=== PATIENT | male | born 1975 | race Asian ===

== ENCOUNTER 2020-07-05 07:44 | Outpatient (REF) | payer OTHER, SELFPAY | END 2020-07-05 07:45 | disposition home or self-care (01) | LOC: HO.LAB 07:44 | PROVIDERS: Visit Provider Internal Medicine | DX: Z20.822 Contact with and (suspected) exposure to COVID-19 (principal) | CPT/HCPCS: 36415; C9803; U0003; U0005 ==

== ENCOUNTER 2020-10-21 05:56 | Emergency (ER) | payer OTHER, SELFPAY ==
[2020-10-21 07:09] VITALS: BP 141/90; PULSE 77; RESP 17; TEMP 36.8; O2SAT 96; BMI 31.1
--- NOTE | 2020-10-21 07:25 | ED_ITS ---
HPI - Back Pain/Injury General Chief Complaint: Back Pain/Injury Stated Complaint: Back pain Time Seen by Provider: 10/21/20 07:15 Source: patient Mode of arrival: ambulatory Limitations: no limitations History of Present Illness HPI Narrative: Patient comes emergency room complaining of bilateral lower back pain for 6 days. Patient states 6 days ago he was at home, lifted bag of laundry, heard a pop. Since then, he has been having bilateral lower back pain. Patient states he has not taking any wlux-grn-bylepnh medications for pain. Patient states that over last few days, the pain has actually been getting better. Patient denies any urinary/fecal incontinence/retention. Patient is ambulatory. MD elicited complaint: back pain Related Data Previous Rx's Medication Instructions Recorded cyclobenzaprine 10 mg PO TID PRN #10 tab 10/21/20 ibuprofen 600 mg PO TID PRN #10 tab 10/21/20 lidocaine 3 patch TOPICAL DAILY #1 ea 10/21/20 Allergies Allergy/AdvReac Type Severity Reaction Status Date / Time No Known Allergies Allergy Unverified 02/14/20 16:08 [No Known Allergies*] Review of Systems Review of Systems: Constitutional : No Weight loss, No Fever, No Chills, No Night Sweats, No Fatigue, No Malaise ENT/Mouth : No Hearing loss, No Ear Pain, No Nasal Congestion, No Sinus Pain, No Hoarseness, No sore throat, No Rhinorrhea, No Swallowing Difficulty Eyes: No Eye Pain, No Swelling, No Redness, No Foreign Body, No Discharge, No Vision Changes Cardiovascular : No Chest Pain, No SOB, No Dyspnea on Exertion, No Orthopnea, No Edema, No Palpitations Respiratory : No Cough, No Sputum, No Wheezing, No Smoke Exposure, No Dyspnea Gastrointestinal : No Nausea, No Vomiting, No Diarrhea, No Constipation, No abdominal Pain, No Hematochezia, No Melena Genitourinary : no irregular bleeding, No Dysuria, No Urinary Frequency, No Hematuria, No Urinary Incontinence, No Urgency, No Flank Pain, No Urinary Flow Changes, No Hesitancy Musculoskeletal : No joint pain, bilateral lower back pain Skin : No Skin Lesions, No rash Neuro : No Weakness, No Numbness, No Paresthesias, No Loss of Consciousness, No Dizziness, No Headache Psych : No Anxiety/Panic, No Depression, No SI/HI/AH/VH, No Social Issues, Heme/Lymph: No Bruising, No Bleeding,No Lymphadenopathy Endocrine : No Polyuria, No Polydipsia, No Temperature Intolerance PENDING SALE TO [facility] Social History Social History Advance Directives: No Advance Directives Information Provided: No Physical Exam Vital Signs: Vital Signs: Last Vital Signs Temp 98.3 F 10/21/20 07:09 Pulse 77 10/21/20 07:09 Resp 17 10/21/20 07:09 BP 141/90 H 10/21/20 07:09 Pulse Ox 96 10/21/20 07:09 Body Mass Index 31.1 Appearance: Alert. Oriented X3. No acute distress. Eyes: Pupils equal, round and reactive to light. ENT: Pharynx normal. Neck: Normal inspection. Neck supple. No lymph nodes noted. No crepitus CVS: Normal heart rate and rhythm. Pulses normal. Normal S1 and S2 Respiratory: No respiratory distress. Breath sounds normal. No Wheezing. No rales Abdomen: Soft and nontender. No rigidity. No distention. Back: No thoracic or lumbar spine tenderness, pain to palpation over the paraspinal muscles bilaterally. No hip pain, hip stability, negative straight leg raise test bilaterally Skin: Skin warm and dry. Normal skin color. Normal skin turgor. Extremities: No lower extremity edema. No lower extremity edema. No La cerations. No Rash Neuro: Oriented X 3. No motor deficit. No sensory deficit. Moving all extermities. No slurred speech. Course Course Course Narrative: Patient's pain likely musculoskeletal. At this time, strain to paraspinal muscles most likely. Less likely to be sciatica/pinch nerve/herniated disc. Overall, with the treatment patient is improving Discharge Plan Discharge Clinical Impression: Strain of lumbar region Qualifiers: Encounter type: initial encounter Qualified Code(s): S39.012A - Strain of muscle, fascia and tendon of lower back, initial encounter Patient Disposition: Home, Self-Care Instructions: Low Back Strain (ED), Lower Back Exercises (ED) Additional Instructions: Please follow-up with your primary care physician tomorrow. If you have any worsening or new symptoms, please return to the emergency room or call 911 Prescriptions: New ibuprofen 600 mg tablet 600 mg PO TID PRN (Reason: pain) Qty: 10 RF: 0 cyclobenzaprine 10 mg tablet 10 mg PO TID PRN (Reason: muscle spasm) Qty: 10 RF: 0 lidocaine 5 % adhesive patch,medicated 3 patch topical DAILY Qty: 1 RF: 0 Stand Alone Forms: Work/School Release
[2020-10-21] MEDS: Ketorolac Tromethamine 60 MG/2 ML VIAL IM (07:37)
== END 2020-10-21 07:43 | disposition home or self-care (01) ==
PROVIDERS: Emergency Provider Emergency Medicine
DX: S39.012A Strain of muscle, fascia and tendon of lower back, initial encounter (principal); X50.0XXA Overexertion from strenuous movement or load, initial encounter; Y93.E2 Activity, laundry; Y92.018 Other place in single-family (private) house as the place of occurrence of the external cause; Y99.9 Unspecified external cause status
CPT/HCPCS: 96372; 99284; J1885

== ENCOUNTER 2021-03-14 05:24 | Emergency (ER) | payer OTHER, SELFPAY ==
[2021-03-14 05:36] VITALS: BP 115/86; PULSE 96; RESP 16; TEMP 36.4; O2SAT 95; BMI 33.4
[2021-03-14 05:48] LABS: COVID-19 Test Negative (Negative); IDNOW Serial# 9DD0AD1C
[2021-03-14 06:25] LABS: Appearance Urine CLEAR; Color Urine YELLOW; Glucose Urine UA NEG (NEG); Leukocyte Esterase Urine NEG (NEG); MANUAL DIFF FLAG NO; Nitrite Urine NEG (NEG); Specific Gravity - Urine >= 1.030 (1.005-1.025); UACC Culture Trigger NO; Urine Blood 2+ (NEG); Urine Ketones NEG (NEG); Urine Protein 1+ MG/DL (NEG-TRACE)
[2021-03-14 06:26] LABS: Basophils Percent Auto 0.4 % (0-2); Eosinophils Absolute Auto 0.1 X10*3/uL (0.0-0.4); Eosinophils Percent Auto 0.9 % (0-4); Hematocrit 51.3 % (42-52); Hemoglobin 16.4 g/dl (14.0-18.0); Imm Gran Abs Auto 0.04 X10*3/uL (0.00-0.03); Imm Gran Pct Auto 0.4 % (0.0-0.4); Lymphocytes Absolute Auto 1.5 X10*3/uL (1.2-4.9); Mean Corpuscular Hemoglobin 23.8 pg (27.0-33.0); Mean Corpuscular Volume 74.6 fL (80-98); Mean Platelet Volume 11.6 fL (9.4-12.4); Monocytes Absolute Auto 1.2 X10*3/uL (0.1-1.2); Monocytes Percent Auto 11.7 % (2-11); Neutrophils Absolute Auto 7.1 X10*3/uL (2.0-8.3); Neutrophils Percent Auto 71.6 % (45-73); Platelet Count 259 X10*3/uL (160-400); Red Blood Count 6.88 X10*6/uL (4.60-5.80); Red Cell Distribution Width 17.5 % (11.0-16.0); White Blood Count 9.9 X10*3/uL (4.8-10.8)
[2021-03-14] MEDS: 0.9 % Sodium Chloride 1,000 ML 999 ML IV (06:26)
[2021-03-14] MEDS: ondansetron HCL 4 MG/2 ML VIAL IVPUSH (06:26)
[2021-03-14 06:39] LABS: Granular Casts Urine 0-2 /LPF; Hyaline Casts Urine 0-2 /LPF; Mucus Urine 3+ /LPF; Sperm Urine NOTED; Squamous Epithelial Cell Urine TRACE /LPF; WBC Urine 0-2 /HPF (0-4)
[2021-03-14 06:51] LABS: Alanine Aminotransferase 47 U/L (0-40); Albumin Level 4.7 g/dL (3.5-5.0); Alkaline Phosphatase 115 U/L (39-117); Anion Gap 16 (12-20); Aspartate Amino Transferase 66 U/L (5-37); Bilirubin Total 0.7 mg/dL (0.0-1.0); Blood Urea Nitrogen 26 mg/dL (9-16); Calcium 9.8 mg/dL (8.4-10.2); Carbon Dioxide 18 mmol/L (22-29); Chloride 114 mmol/L (96-108); Estimated Glomerular Filt Rate 54; Glucose Random 86 mg/dL (60-115); Lipase 46 U/L (8-78); Potassium 4.9 mmol/L (3.3-5.1); Sodium 143 mmol/L (135-145); Total Protein 7.9 g/dL (6.5-8.0)
--- NOTE | 2021-03-14 08:21 | ED_ITS ---
HPI - Nausea/Vomiting/Diarrhea General Chief complaint: Nausea/Vomiting/Diarrhea Stated complaint: stomach pain, vomiting, diarrhea Time Seen by Provider: 03/14/21 05:56 Source: patient Mode of arrival: ambulatory History of Present Illness HPI Narrative: 45-year-old male without significant past medical history presents with 3 days nausea, vomiting, diarrhea and denies any recent travel, but states he may have gotten it from his niece. He is unsure if there is a possibility that it might of been contaminated food as well. Patient has chills but no fevers and denies any urinary symptoms. Patient reports that he has been on recent antibiotic use for dental caries. Related Data Previous Rx's Medication Instructions Recorded cyclobenzaprine 10 mg tablet 10 mg PO TID PRN #10 tab 10/21/20 ibuprofen 600 mg tablet 600 mg PO TID PRN #10 tab 10/21/20 lidocaine 5 % topical patch 3 patch TOPICAL DAILY #1 ea 10/21/20 Allergies Allergy/AdvReac Type Severity Reaction Status Date / Time No Known Allergies Allergy Verified 03/14/21 05:36 [No Known Allergies*] Review of Systems Review of Systems: Pertinent positives and negatives as stated in HPI 10 point review of systems is otherwise negative. PMFSH Past Medical History Source: nursing notes reviewed Social History Social History Alcohol intake: never Advance Directives: No Advance Directives Information Provided: Yes Physical Exam Vital Signs: Vital Signs: Last Vital Signs Temp 97.6 F 03/14/21 05:36 Pulse 96 03/14/21 05:36 Resp 16 03/14/21 05:36 BP 115/86 03/14/21 05:36 Pulse Ox 95 03/14/21 05:36 Body Mass Index 33.4 VITAL SIGNS: Reviewed. GENERAL: Well developed, well nourished, in no acute distress. HEAD: Normocephalic/atraumatic, EYES: PERRLA, EOMI LUNGS: Normal breath sounds. No adventitious sounds or accessory muscle use. SpO2<95> CARDIOVASCULAR: Regular rate and rhythm without noted murmurs ABDOMEN: Soft, non-tender, non-distended with bowel sounds. SKIN: Inspection of the skin reveals no rashes NEUROLOGIC: Alert and oriented x 4. Strength and sensation to light touch were grossly intact x 4. Course Course Course Narrative: This is a 45-year-old male with history and clinical presentation consistent with gastroenteritis, C diff as well as dehydration. Signed out to Dr Mancia. MDM - Nausea/Vomiting/Diarrhea Lab Data Result diagrams: 03/14/21 06:19 03/14/21 06:19 Labs: Lab Results 03/14/21 03/14/21 03/14/21 Range/Units 05:28 06:19 06:19 WBC 9.9 (4.8-10.8) X10*3/uL RBC 6.88 H (4.60-5.80) X10*6/uL Hgb 16.4 (14.0-18.0) g/dl Hct 51.3 (42-52) % MCV 74.6 L (80-98) fL MCH 23.8 L (27.0-33.0) pg MCHC 32.0 (31.0-36.0) g/dl RDW 17.5 H (11.0-16.0) % Plt Count 259 (160-400) X10*3/uL MPV 11.6 (9.4-12.4) fL Immature Gran % (Auto) 0.4 (0.0-0.4) % Neut % (Auto) 71.6 (45-73) % Lymph % (Auto) 15.0 L (20-40) % Pepin % (Auto) 11.7 H (2-11) % Eos % (Auto) 0.9 (0-4) % Baso % (Auto) 0.4 (0-2) % Lymph # (Auto) 1.5 (1.2-4.9) X10*3/uL [place] # (Auto) 1.2 (0.1-1.2) X10*3/uL Eos # (Auto) 0.1 (0.0-0.4) X10*3/uL Baso # (Auto) 0.0 (0.0-0.2) X10*3/uL Abs Immat Gran (auto) 0.04 H (0.00-0.03) X10*3/uL Absolute Neuts (auto) 7.1 (2.0-8.3) X10*3/uL Absolute Nucleated RBC 0.000 (0.0-0.012) X10*3/uL Nucleated RBC % (auto) 0.0 (0.0-0.2) /100WBC Sodium 143 (135-145) mmol/L Potassium 4.9 (3.3-5.1) mmol/L Chloride 114 H (96-108) mmol/L Carbon Dioxide 18 L (22-29) mmol/L Anion Gap 16 (12-20) BUN 26 H (9-16) mg/dL Creatinine 1.42 H (0.5-1.4) mg/dL Estim Creat Clear Calc 76.0 Estimated GFR 54 Random Glucose 86 (60-115) mg/dL Calcium 9.8 (8.4-10.2) mg/dL Total Bilirubin 0.7 (0.0-1.0) mg/dL AST 66 H (5-37) U/L ALT 47 H (0-40) U/L Alkaline Phosphatase 115 (39-117) U/L Total Protein 7.9 (6.5-8.0) g/dL Albumin 4.7 (3.5-5.0) g/dL Lipase 46 (8-78) U/L Urine Color Urine Appearance Urine pH (5.0-8.0) Ur Specific [place] (1.005-1.025) Urine Protein (NEG-TRACE) MG/DL Urine Glucose (UA) (NEG) MG/DL Urine Ketones (NEG) MG/DL Urine Blood (NEG) Urine Nitrite (NEG) Ur Leukocyte Esterase (NEG) Urine RBC (0) /HPF Urine WBC (0-4) /HPF Ur Squamous Epith Cells /LPF Urine Bacteria /LPF Hyaline Casts /LPF Granular Casts /LPF Urine Mucus /LPF Urine Sperm COVID-19 (MARIBELL) Negative (Negative) COVID-19 Clin Com See Note 03/14/21 Range/Units 06:19 WBC (4.8-10.8) X10*3/uL RBC (4.60-5.80) X10*6/uL Hgb (14.0-18.0) g/dl Hct (42-52) % MCV (80-98) fL MCH (27.0-33.0) pg MCHC (31.0-36.0) g/dl RDW (11.0-16.0) % Plt Count (160-400) X10*3/uL MPV (9.4-12.4) fL Immature Gran % (Auto) (0.0-0.4) % Neut % (Auto) (45-73) % Lymph % (Auto) (20-40) % [place] % (Auto) (2-11) % Eos % (Auto) (0-4) % Baso % (Auto) (0-2) % Lymph # (Auto) (1.2-4.9) X10*3/uL [place] # (Auto) (0.1-1.2) X10*3/uL Eos # (Auto) (0.0-0.4) X10*3/uL Baso # (Auto) (0.0-0.2) X10*3/uL Abs Immat Gran (auto) (0.00-0.03) X10*3/uL Absolute Neuts (auto) (2.0-8.3) X10*3/uL Absolute Nucleated RBC (0.0-0.012) X10*3/uL Nucleated RBC % (auto) (0.0-0.2) /100WBC Sodium (135-145) mmol/L Potassium (3.3-5.1) mmol/L Chloride (96-108) mmol/L Carbon Dioxide (22-29) mmol/L Anion Gap (12-20) BUN (9-16) mg/dL Creatinine (0.5-1.4) mg/dL Estim Creat Clear Calc Estimated GFR Random Glucose (60-115) mg/dL Calcium (8.4-10.2) mg/dL Total Bilirubin (0.0-1.0) mg/dL AST (5-37) U/L ALT (0-40) U/L Alkaline Phosphatase (39-117) U/L Total Protein (6.5-8.0) g/dL Albumin (3.5-5.0) g/dL Lipase (8-78) U/L Urine Color YELLOW Urine Appearance CLEAR Urine pH 6.0 (5.0-8.0) Ur Specific [place] >= 1.030 H (1.005-1.025) Urine Protein 1+ H (NEG-TRACE) MG/DL Urine Glucose (UA) NEG (NEG) MG/DL Urine Ketones NEG (NEG) MG/DL Urine Blood 2+ H (NEG) Urine Nitrite NEG (NEG) Ur Leukocyte Esterase NEG (NEG) Urine RBC 5-9 H (0) /HPF Urine WBC 0-2 (0-4) /HPF Ur Squamous Epith Cells TRACE /LPF Urine Bacteria NONE /LPF Hyaline Casts 0-2 /LPF Granular Casts 0-2 /LPF Urine Mucus 3+ /LPF Urine Sperm NOTED COVID-19 (MARIBELL) (Negative) COVID-19 Clin Com Discharge Plan Discharge Clinical Impression: Gastroenteritis, Dehydration Patient Disposition: Home, Self-Care Instructions: Dehydration (ED), Gastroenteritis (ED) Prescriptions: No Action ibuprofen 600 mg tablet 600 mg PO TID PRN (Reason: pain) Qty: 10 RF: 0 cyclobenzaprine 10 mg tablet 10 mg PO TID PRN (Reason: muscle spasm) Qty: 10 RF: 0 lidocaine 5 % adhesive patch,medicated 3 patch topical DAILY Qty: 1 RF: 0
[2021-03-14 08:38] LABS: Leukocytes Stool Qualitative FEW: < 2/OIF (NEGATIVE)
[2021-03-14] MEDS: 0.9 % Sodium Chloride 1,000 ML 999 ML IVCONT (09:14)
[2021-03-14 11:41] LABS: CDiff Gene PCR INVALID (Negative)
== END 2021-03-14 11:09 | disposition home or self-care (01) ==
PROVIDERS: Student in an Organized Health Care Education/Training Program; Emergency Provider Emergency Medicine
DX: E86.0 Dehydration (principal); K52.9 Noninfective gastroenteritis and colitis, unspecified; Z20.822 Contact with and (suspected) exposure to COVID-19
CPT/HCPCS: 36415; 80053; 81001; 83690; 85025; 87045; 87046; 87493; 87635; 89055; 96361; 96374; 99283; 99284; J2405

== ENCOUNTER 2021-07-24 12:53 | Emergency (ER) | payer OTHER, SELFPAY | END 2021-07-24 14:12 | disposition left against medical advice (07) | PROVIDERS: Emergency Provider Emergency Medicine | DX: R10.9 Unspecified abdominal pain (principal) ==

== ENCOUNTER 2022-10-24 03:25 | Emergency (ER) | payer OTHER, SELFPAY ==
--- NOTE | ~2022-10-24 | CT_ITS ---
EXAMINATION: CT CHEST WITH CONTRAST CLINICAL INFORMATION: Extensive florez the left chest wall. COMPARISON: None available. TECHNIQUE: Multidetector volumetric CT imaging of the chest was obtained after the administration of 85 mL of Omnipaque 350 intravenous contrast without immediate adverse reactions. Axial MIP volume rendering provided. Sagittal and coronal reformatted images were obtained. This CT examination was performed using dose optimization techniques as appropriate, variously including the following: *Automated exposure control *Adjustment of mA and/or kV according to patient size (this includes techniques or standardized protocols for targeted exams where dose is matched to indication/reason for exam; i.e. extremities or head) *Use of iterative reconstruction technique DLP: 512 mGy-cm FINDINGS: LUNGS: Limited by low lung volumes. Mild bibasilar atelectasis. No consolidation. No suspicious nodule identified. MEDIASTINUM: Fluid within the esophagus. No evidence of coronary arterial calcification. Heart upper normal in size. No pericardial effusion. PLEURA: There is no pleural effusion. No pleural mass or thickening. AXILLA: No lymphadenopathy by size criteria. UPPER ABDOMEN: Suspect mild fatty infiltration of the liver. OSSEOUS STRUCTURES: Unremarkable. CT/CT chest w IV con IMPRESSION: Limited by low lung volumes. No acute finding. Fluid within the esophagus, suggesting an element of reflux and/or dysmotility.
[2022-10-24 03:27] VITALS: BP 144/100; PULSE 92; RESP 22; TEMP 36.3; O2SAT 92; BMI 36.5
--- NOTE | 2022-10-24 03:42 | ECG_ITS ---
Test Reason : DIZINESS Blood Pressure : / mmHG Vent. Rate : 090 BPM Atrial Rate : 090 BPM P-R Int : 150 ms QRS Dur : 092 ms QT Int : 396 ms P-R-T Axes : 042 031 005 degrees QTc Int : 484 ms Normal sinus rhythm Normal EKG When compared with ECG of 09-OCT-2019 10:23, No significant changes seen Referred By: Generic ED Physician Electronically Signed By:TAYLOR MCCORMICK
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
[2022-10-24 05:09] LABS: Hematocrit 52.5 % (42.0-52.0); Hemoglobin 16.1 g/dl (14.0-18.0); Mean Corpuscular HGB Conc 30.7 g/dl (31.0-36.0); Mean Corpuscular Hemoglobin 23.6 pg (27.0-33.0); Mean Corpuscular Volume 76.9 fL (80.0-98.0); Mean Platelet Volume 10.8 fL (9.4-12.4); Platelet Count 230 X10*3/uL (160-400); Red Blood Count 6.83 X10*6/uL (4.60-5.80); Red Cell Distribution Width 17.4 % (11.0-16.0); WBC ABN SCTR FOR CBC 1
[2022-10-24 05:10] LABS: White Blood Count 24.6 X10*3/uL (4.8-10.8)
[2022-10-24] MEDS: ondansetron HCL 4 MG/2 ML VIAL IVPUSH ×2 (05:11→10:49)
[2022-10-24] MEDS: 0.9 % Sodium Chloride 2,000 ML 999 ML IV (05:12)
[2022-10-24 05:28] LABS: Band Neutrophils Percent 2 % (3-5); Lymphocytes Absolute Manual 0.2 X10*3/uL (1.2-4.9); Lymphocytes Percent Manual 1 % (20-40); Monocytes Absolute Manual 2.7 X10*3/uL (0.1-1.2); Monocytes Percent Manual 11 % (2-11); Neutrophils Absolute Manual 21.6 X10*3/uL (2.0-8.3); Neutrophils Percent Manual 86 % (45-73); RBC Morphology NOTED
[2022-10-24 05:29] LABS: Microcytosis 1+ (5-14) /OIF; Platelet Estimate NORMAL (NORMAL); Platelet Morphology Comment NORMAL
[2022-10-24 05:45] LABS: Alanine Aminotransferase 22 U/L (0-40); Albumin Level 4.3 g/dL (3.5-5.0); Alkaline Phosphatase 92 U/L (39-117); Anion Gap 18 (12-20); Aspartate Amino Transferase 40 U/L (5-37); Bilirubin Direct 0.2 mg/dL (0.0-0.5); Bilirubin Total 0.7 mg/dL (0.0-1.0); Blood Urea Nitrogen 27 mg/dL (9-16); Carbon Dioxide 22 mmol/L (22-29); Chloride 109 mmol/L (96-108); Creatinine Clr Calc Pharmacy 88.3; Estimated Glomerular Filt Rate > 60; Glucose Random 108 mg/dL (60-115); Lipase 19 U/L (8-78); Potassium 5.6 mmol/L (3.3-5.1); Sodium 143 mmol/L (135-145); Total Protein 7.2 g/dL (6.5-8.0)
[2022-10-24] MEDS: fentaNYL citrate/PF 100 MCG/2 ML VIAL 25 MCG IVPUSH (05:55)
[2022-10-24 05:58] LABS: Lactic Acid 1.4 mmol/L (0.5-2.0)
--- NOTE | 2022-10-24 06:19 | PC.NURSE ---
Antibiotic administration delayed due to CT requesting to wait until after scans.
[2022-10-24] MEDS: Piperacillin Sodium/Tazobactam 3.375 GM in 0.9 % Sodium Chloride 50 ML IV (06:37)
[2022-10-24] MEDS: iohexoL 350 MG/ML 100 ML INFUS..BTL 85 ML IV (06:41)
[2022-10-24 06:46] VITALS: BP 179/116; PULSE 95; RESP 14; TEMP 36.5; O2SAT 98
[2022-10-24 06:53] LABS: Appearance Urine Clear; Color Urine Yellow; Glucose Urine UA Negative (Negative); Leukocyte Esterase Urine Negative (Negative); Nitrite Urine Negative (Negative); PH 5.5 (5.0-9.0); Specific Gravity - Urine >= 1.030 (1.005-1.025); UMIC TRIGGER UACC YES; Urine Blood Trace (Negative); Urine Ketones Negative (Negative); Urine Protein Negative (Neg-Trace)
[2022-10-24 06:58] LABS: Bacteria Urine None Seen (None Seen); Hyaline Casts Urine 0-2 /LPF (0-2); RBC Urine 0-2 /HPF (0-2); Squamous Epithelial Cell Urine 0-2 /HPF (0-2); WBC Urine 0-5 /HPF (0-5)
[2022-10-24 07:12] VITALS: BP 175/109; PULSE 90; RESP 16; TEMP 36.4; O2SAT 95
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
--- NOTE | 2022-10-24 07:52 | MHC.EDTECH ---
@[id number] called [facility] at the request of Dr. Smart. Gave patient demographics and a call back number to the individual on the phone. The individual asks to speak with Dr. Smart regarding diagnosis. Dr. Smart takes the call right away.
[2022-10-24 08:20] LABS: Magnesium 2.4 mg/dL (1.6-2.6)
[2022-10-24 08:44] LABS: Amphetamine Screen Urine Not Detected (Not Detect); Barbiturates, Urine Not Detected (Not Detect); Benzodiazepines Screen Urine Not Detected (Not Detect); Cannabinoid Screen Urine Not Detected (Not Detect); Cocaine Screen Urine POSITIVE (Not Detect); Fentanyl, urine POSITIVE (Not Detect); Opiate Screen Urine POSITIVE (Not Detect); Phencyclidine Screen Urine Not Detected (Not Detect)
[2022-10-24] MEDS: Bacitracin Oint 0.9 GM PACKET 1 APPL TOPICAL (08:44)
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
[2022-10-24] MEDS: 0.9 % Sodium Chloride 1,000 ML 125 ML IVCONT (08:52)
[2022-10-24 09:15] LABS: Anion Gap 13 (12-20); Blood Urea Nitrogen 20 mg/dL (9-16); Calcium 8.7 mg/dL (8.4-10.2); Carbon Dioxide 28 mmol/L (22-29); Chloride 110 mmol/L (96-108); Creatinine Clr Calc Pharmacy 99.4; Estimated Glomerular Filt Rate > 60; Glucose Random 91 mg/dL (60-115); Potassium 4.7 mmol/L (3.3-5.1); Sodium 146 mmol/L (135-145)
[2022-10-24] MEDS: Lactated Ringers 1,000 ML 125 ML IVCONT (09:36)
--- NOTE | 2022-10-24 10:04 | MHC.EDTECH ---
@[phone] called [facility] [place] to check the status of the transfer. The individual on the phone states they are currently waiting for patients to be discharged. They will call us to let us know when a bed opens up so we can transfer the patient.
--- NOTE | 2022-10-24 10:38 | MHC.EDTECH ---
@1026 [facility] [place] called. The patient has been assigned a room. They will go to [place] [id number]. Nurse to Nurse number is .
[2022-10-24] MEDS: HYDROmorphone HCl 0.5 MG/0.5 ML SYRINGE IVPUSH (10:49)
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
== END 2022-10-24 16:01 | disposition short-term general hospital (02) ==
PROVIDERS: Emergency Provider Student in an Organized Health Care Education/Training Program
DX: R42 Dizziness and giddiness (principal); T21.31XA Burn of third degree of chest wall, initial encounter; T21.33XA Burn of third degree of upper back, initial encounter; T21.34XA Burn of third degree of lower back, initial encounter; T31.11 Burns involving 10-19% of body surface with 10-19% third degree burns; M54.6 Pain in thoracic spine; R07.89 Other chest pain; M54.50 Low back pain, unspecified; R51.9 Headache, unspecified; M54.2 Cervicalgia; X16.XXXA Contact with hot heating appliances, radiators and pipes, initial encounter; Y93.9 Activity, unspecified; Y92.009 Unspecified place in unspecified non-institutional (private) residence as the place of occurrence of the external cause; Y99.9 Unspecified external cause status; Z79.899 Other long term (current) drug therapy
CPT/HCPCS: 16030; 36415; 71260; 80048; 80076; 80307; 81001; 82550; 83605; 83690; 83735; 85007; 85027; 87040; 93005; 96361; 96365; 96366; 96375; 96376; 99285; J1170; J2405; J2543; J3010; Q9967

== ENCOUNTER 2022-11-07 21:18 | Emergency (ER) | payer OTHER, SELFPAY ==
[2022-11-07 21:20] VITALS: BP 145/94; PULSE 98; RESP 20; TEMP 36.9; O2SAT 94; BMI 35.7
[2022-11-07 21:35] LABS: MANUAL DIFF FLAG NO
[2022-11-07 21:40] LABS: Basophils Absolute Auto 0.1 X10*3/uL (0.0-0.2); Basophils Percent Auto 0.4 % (0-2); Eosinophils Absolute Auto 0.4 X10*3/uL (0.0-0.4); Eosinophils Percent Auto 2.6 % (0-4); Hematocrit 40.6 % (42.0-52.0); Hemoglobin 13.1 g/dl (14.0-18.0); Imm Gran Abs Auto 0.06 X10*3/uL (0.00-0.03); Imm Gran Pct Auto 0.4 % (0.0-0.4); Lymphocytes Absolute Auto 2.2 X10*3/uL (1.2-4.9); Mean Corpuscular HGB Conc 32.3 g/dl (31.0-36.0); Mean Corpuscular Hemoglobin 23.8 pg (27.0-33.0); Mean Corpuscular Volume 73.8 fL (80.0-98.0); Mean Platelet Volume 11.1 fL (9.4-12.4); Monocytes Absolute Auto 1.1 X10*3/uL (0.1-1.2); Neutrophils Absolute Auto 9.9 x10*3/uL (2.0-8.3); Neutrophils Percent Auto 72.6 % (45-73); Platelet Count 332 X10*3/uL (160-400); Red Cell Distribution Width 15.2 % (11.0-16.0); White Blood Count 13.6 X10*3/uL (4.8-10.8)
[2022-11-07 21:45] VITALS: BP 120/82; PULSE 94; RESP 18; TEMP 36.4; O2SAT 96
[2022-11-07 21:51] LABS: Lactic Acid 1.5 mmol/L (0.5-2.0)
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
[2022-11-07 21:56] LABS: Alanine Aminotransferase 22 U/L (0-40); Albumin Level 3.9 g/dL (3.5-5.0); Alkaline Phosphatase 123 U/L (39-117); Anion Gap 13 (12-20); Aspartate Amino Transferase 19 U/L (5-37); Bilirubin Total 0.5 mg/dL (0.0-1.0); Blood Urea Nitrogen 27 mg/dL (9-16); Calcium 9.1 mg/dL (8.4-10.2); Carbon Dioxide 25 mmol/L (22-29); Chloride 107 mmol/L (96-108); Creatinine Clr Calc Pharmacy 121.3; Estimated Glomerular Filt Rate > 60; Glucose Random 113 mg/dL (60-115); Potassium 4.2 mmol/L (3.3-5.1); Sodium 141 mmol/L (135-145); Total Protein 6.2 g/dL (6.5-8.0)
[2022-11-07] MEDS: oxyCODONE HCl Immed Release 5 MG TABLET 10 MG PO (22:19)
[2022-11-07] MEDS: Doxycycline Monohydrate 100 MG CAPSULE PO (22:20)
== END 2022-11-07 22:25 | disposition home or self-care (01) ==
PROVIDERS: Emergency Provider Internal Medicine
DX: T22.10XA Burn of first degree of shoulder and upper limb, except wrist and hand, unspecified site, initial encounter (principal); T22.20XA Burn of second degree of shoulder and upper limb, except wrist and hand, unspecified site, initial encounter; T31.0 Burns involving less than 10% of body surface; M79.602 Pain in left arm; Z79.899 Other long term (current) drug therapy
CPT/HCPCS: 36415; 80053; 83605; 85025; 99283; 99284

== ENCOUNTER 2022-11-09 16:08 | Emergency (ER) | payer OTHER, SELFPAY ==
[2022-11-09 16:58] VITALS: BP 145/94; PULSE 76; RESP 18; TEMP 37; O2SAT 95; BMI 35.7
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
[2022-11-09 17:47] LABS: MANUAL DIFF FLAG NO
[2022-11-09 18:01] LABS: Anion Gap 11 (12-20); Basophils Absolute Auto 0.1 X10*3/uL (0.0-0.2); Basophils Percent Auto 0.6 % (0-2); Blood Urea Nitrogen 20 mg/dL (9-16); Calcium 9.5 mg/dL (8.4-10.2); Carbon Dioxide 30 mmol/L (22-29); Chloride 109 mmol/L (96-108); Eosinophils Absolute Auto 0.4 X10*3/uL (0.0-0.4); Eosinophils Percent Auto 3.8 % (0-4); Estimated Glomerular Filt Rate > 60; Glucose Random 100 mg/dL (60-115); Hematocrit 42.7 % (42.0-52.0); Hemoglobin 13.5 g/dl (14.0-18.0); Imm Gran Abs Auto 0.16 X10*3/uL (0.00-0.03); Imm Gran Pct Auto 1.5 % (0.0-0.4); Lymphocytes Absolute Auto 1.9 X10*3/uL (1.2-4.9); Mean Corpuscular HGB Conc 31.6 g/dl (31.0-36.0); Mean Corpuscular Hemoglobin 24.1 pg (27.0-33.0); Mean Corpuscular Volume 76.3 fL (80.0-98.0); Mean Platelet Volume 11.2 fL (9.4-12.4); Monocytes Absolute Auto 0.8 X10*3/uL (0.1-1.2); Monocytes Percent Auto 7.2 % (2-11); Neutrophils Absolute Auto 7.2 x10*3/uL (2.0-8.3); Neutrophils Percent Auto 68.9 % (45-73); Platelet Count 315 X10*3/uL (160-400); Potassium 4.5 mmol/L (3.3-5.1); Red Cell Distribution Width 15.5 % (11.0-16.0); Sodium 145 mmol/L (135-145); White Blood Count 10.5 X10*3/uL (4.8-10.8)
--- NOTE | 2022-11-09 21:16 | PC.NURSE ---
pt was not in waiting room, pt was in his car and had to be called into the ed so he can have his bed in room 2. steady gait. no s/s of sob. pt talking in full sentences.
[2022-11-09 21:40] VITALS: BP 141/93; PULSE 73; RESP 16; TEMP 36.7; O2SAT 98
--- NOTE | 2022-11-09 21:41 | MHC.EDTECH ---
THIS PCT JUST ASSUMED CARE OF PT ,VITALS SIGN TAKEN ,WARM BLANKET AND PILLOW GIVEN ,PT RESTING QUIETLY IN BED .
[2022-11-09] MEDS: oxyCODONE HCl Immed Release 5 MG TABLET 10 MG PO (22:17)
--- NOTE | 2022-11-09 22:18 | PC.NURSE ---
pt medicated per [facility]
== END 2022-11-09 22:23 | disposition home or self-care (01) ==
PROVIDERS: Physician Assistant; Emergency Provider Emergency Medicine
DX: T24.212A Burn of second degree of left thigh, initial encounter (principal); T31.0 Burns involving less than 10% of body surface; X08.8XXA Exposure to other specified smoke, fire and flames, initial encounter; Y93.9 Activity, unspecified; Y92.9 Unspecified place or not applicable; Y99.9 Unspecified external cause status
CPT/HCPCS: 16025; 36415; 80048; 85025; 99283

== ENCOUNTER 2023-05-18 10:22 | Emergency (ER) | payer OTHER, SELFPAY | END 2023-05-18 11:45 | disposition left against medical advice (07) | LOC: HO.ED 11:39 | PROVIDERS: Emergency Provider Emergency Medicine | DX: H92.03 Otalgia, bilateral (principal) ==

== ENCOUNTER 2023-05-18 11:41 | Emergency (ER) | payer OTHER, SELFPAY ==
[2023-05-18 12:57] VITALS: BP 133/91; PULSE 89; RESP 19; TEMP 36.6; O2SAT 98; BMI 35.0
--- NOTE | 2023-05-18 13:00 | ED.GENADULT ---
HPI - General Adult General Chief complaint: Ear Problems Stated complaint: B/L Ear Pain Time Seen by Provider: 05/18/23 13:00 Source: patient Mode of arrival: ambulatory Limitations: no limitations History of Present Illness HPI narrative: 47 yold male with no pmh presents to the ED for bilateral ear pain after sneezing hard and hear popping sounds after sneezing hard. Patient than started bleeding from both ears. Patient states no other complaints Related Data Previous Rx's Medication Instructions Recorded cyclobenzaprine 10 mg tablet 10 mg PO TID PRN muscle spasm #10 10/21/20 tabs ibuprofen 600 mg tablet 600 mg PO TID PRN pain #10 tabs 10/21/20 lidocaine 5 % topical patch 3 patch topical DAILY #1 ea 10/21/20 doxycycline hyclate 100 mg tablet 100 mg PO BID #20 tabs 11/07/22 oxycodone 5 mg tablet 5 mg PO Q6H PRN pain #20 tabs 11/07/22 amoxicillin 875 mg-potassium 1 tab PO Q12H 10 days #20 tabs 05/18/23 clavulanate 125 mg tablet naproxen 500 mg tablet 500 mg PO BID PRN pain 7 days #14 05/18/23 tabs Allergies Allergy/AdvReac Type Severity Reaction Status Date / Time No Known Allergies Allergy Verified 05/18/23 12:57 [No Known Allergies*] Review of Systems Review of Systems: bilateral ear pain with popping sounds. bleeding from both ears. Yes all other systems are reviewed and are negative PMF[facility] Social History Social History Alcohol intake: current Alcohol intake frequency: holidays/special occasions only Alcohol type: beer Substance Use Type: Hallucinogens Advance Directives: No Advance Directives Information Provided: No Physical Exam ED Vital Signs: Vital Signs - 24 hr 05/18/23 12:57 Temperature 98 F Pulse Rate 89 Respiratory Rate 19 Blood Pressure 133/91 H Pulse Oximetry 98 Oxygen Delivery Method Room Air BMI result Body Mass Index 35.0 Const General: cooperative, healthy appearing, comfortable, no acute distress, well developed, alert and awake Orientation/consciousness: oriented to person, oriented to place, oriented to time and patient oriented x3 HENMT Head: Yes normal to inspection, Yes No palpable skull fracture present, Yes normocephalic and Yes atraumatic Ears: hearing grossly normal bilaterally, external ears normal, Abnormal EAC present (dired blood) and TM abnormal perforated (possible bilateral) Throat: Yes posterior oropharynx normal, Yes tonsils normal and Yes uvula midline Eyes General: appearance normal, both eyes and all related structures Neck Neck: Yes normal visual inspection, Yes full ROM, Yes no lymphadenopathy, Yes no meningeal signs, Yes trachea midline, Yes supple, No anterior neck swelling and No tender Chest Chest palpation & inspection: normal inspection of the chest and normal palpation of entire chest wall Resp Effort & Inspection: normal respiratory effort and able to speak in complete sentences Auscultation: clear to auscultation bilaterally Cardio Jugular venous distension: no JVD Heart sounds: S1 normal heart sound present and S2 normal heart sound present GI Inspection: Yes normal to inspection and No abdominal wall ecchymosis Palpation (GI): Soft to palpation, not firm, nontender, no guarding and not rigid General: Yes no CVA tenderness Back/Spine/Pelvis Back: no CVA tenderness and No back tenderness Skin General skin exam: no rashes or lesions noted, elasticity normal and turgor normal Neuro General: oriented to person, oriented to place, oriented to time, patient oriented x3, gait normal, tone normal, moves all extremities, Normal light touch and pain sensation, no meningeal signs, no focal motor deficits and CN's II-XI intact bilaterally Extrem General: Yes normal to inspection, Yes full ROM and Yes capillary refill normal Psych Appearance: grossly normal and well kempt Course Course Course Narrative: RME: 47 yold male with bilateral ear pain and hearing popping sound after sneezing hard. patient than had blood from ears. Medical Decision Making Medical Decision Making [facility] Narrative: 47 yold male with no pmh presents to the ED for bilateral ear pain after sneezing hard and hear popping sound in both ears and than starting bleeding from ears. Barotrauma causing possible TM perforation. discharge with antibiotics and educated on covering ear to prevent water going into ear when shower. FOllow up with ENT Differential Diagnosis Differential Diagnoses: The differential diagnosis associated with the presentation includes (TM perforation, otitis media, mike trauma. otitis externa) Prescription Management I considered prescription management with: Pain Medication and Antibiotic Discharge Plan Discharge Clinical Impression: Otitis media, Barotrauma, Tympanic membrane rupture Patient Disposition: Home, Self-Care Instructions: Ruptured Eardrum (ED), Ear Infection (ED), Barotrauma (ED) Additional Instructions: Return to the Ed for any worsening ear pain, bleeding from ears, dizziness, headache, fever, chills, nausea, vomitting, or any other concerning symptosm. Prescriptions: New amoxicillin-pot clavulanate 875-125 mg tablet 1 tab PO Q12H 10 Days Qty: 20 0RF naproxen 500 mg tablet 500 mg PO BID PRN (Reason: pain) 7 Days Qty: 14 0RF No Action ibuprofen 600 mg tablet 600 mg PO TID PRN (Reason: pain) Qty: 10 0RF cyclobenzaprine 10 mg tablet 10 mg PO TID PRN (Reason: muscle spasm) Qty: 10 0RF lidocaine 5 % adhesive patch,medicated 3 patch topical DAILY Qty: 1 0RF Rx Instructions: leave on most painful area for up to 12 hrs doxycycline hyclate 100 mg tablet 100 mg PO BID Qty: 20 0RF oxycodone 5 mg tablet 5 mg PO Q6H PRN (Reason: pain) Qty: 20 0RF Rx Instructions: Partial Fill upon patient request. Referrals: Vincent Storm [Physician] - (barotrauma TM perforatrion) Stand Alone Forms: Work/School Release Interventions: ED Discharge Assessment Last Done: 05/18/23 13:29 Discharge Date/Time: 05/18/23 13:29 Print Language: Maldivian
== END 2023-05-18 13:29 | disposition home or self-care (01) ==
PROVIDERS: Emergency Provider Emergency Medicine Emergency Medical Services
DX: H66.93 Otitis media, unspecified, bilateral (principal); H72.93 Unspecified perforation of tympanic membrane, bilateral
CPT/HCPCS: 99282; 99283

== ENCOUNTER 2023-07-02 06:56 | Emergency (ER) | payer OTHER, SELFPAY ==
[2023-07-02 07:08] VITALS: BP 159/114; PULSE 82; RESP 16; TEMP 36.8; O2SAT 95; BMI 38.9
--- NOTE | 2023-07-02 07:41 | ED_ITS ---
HPI - Ear Problem General Chief complaint: Ear Problems Stated complaint: pain in both ears Time Seen by Provider: 07/02/23 07:41 Source: patient and RN notes reviewed Mode of arrival: ambulatory Limitations: no limitations History of Present Illness HPI Narrative: This is a 48-year-old male presenting to the emergency department for evaluation of bilateral ear pain, right worse than left x 1 month. Pt was seen here in April where he was seen after sneezing and rupturing his ear drums. He was prescribed augumentin which he completed, but remained to have pain and decreased hearing. He was given a referral to ENT whom he has not called. Denies any new trauma. He does endorse yellow drainage from right ear. Denies fevers, chills, headache, dizziness, nausea, vomiting or diarrhea. No other complaints or concerns at this time. MD Complaint: ear pain, ear discharge and decreased hearing Location: bilateral Duration: constant Severity: moderate Relieving factors: nothing Exacerbating factors: nothing Treatment prior to arrival: none Related Data Previous Rx's Medication Instructions Recorded cyclobenzaprine 10 mg tablet 10 mg PO TID PRN muscle spasm #10 10/21/20 tabs ibuprofen 600 mg tablet 600 mg PO TID PRN pain #10 tabs 10/21/20 lidocaine 5 % topical patch 3 patch topical DAILY #1 ea 10/21/20 doxycycline hyclate 100 mg tablet 100 mg PO BID #20 tabs 11/07/22 oxycodone 5 mg tablet 5 mg PO Q6H PRN pain #20 tabs 11/07/22 amoxicillin 875 mg-potassium 1 tab PO Q12H 10 days #20 tabs 05/18/23 clavulanate 125 mg tablet naproxen 500 mg tablet 500 mg PO BID PRN pain 7 days #14 05/18/23 tabs ofloxacin 0.3 % ear drops 10 drp otic (ear) right BID 7 days 07/02/23 #10 mL Allergies Allergy/AdvReac Type Severity Reaction Status Date / Time No Known Allergies Allergy Verified 07/02/23 07:15 [No Known Allergies*] Review of Systems Review of Systems: Yes all other systems are reviewed and are negative Constitutional: Constitutional: Reports as per [facility] Past Medical History Attestation statement: The following information was validated with the patient. Social History Social History (Reviewed 07/02/23 @ 08:10 by SHELLIE Waggoner Alcohol intake: current Alcohol intake frequency: holidays/special occasions only Alcohol type: beer Substance Use Type: Hallucinogens Advance Directives: No Advance Directives Information Provided: No Physical Exam Vital Signs: Vital Signs: Last Vital Signs Temp 98.2 F 07/02/23 07:08 Pulse 82 07/02/23 07:08 Resp 16 07/02/23 07:08 BP 159/114 H 07/02/23 07:08 Pulse Ox 95 07/02/23 07:08 BMI result Body Mass Index 38.9 Const: General: cooperative, comfortable and no acute distress Orientation/consciousness: patient oriented x3 Limitations: no limitations HEENT: Other: R ear with erythematous and edematous ear canal. Irregular appearing TM noted with purulence noted. L ear with irregular shaped TM, slightly erythematous. No mastoid tederness or bogginess Head: Yes normal to inspection, Yes normocephalic and Yes atraumatic Ears: hearing grossly normal bilaterally General nose exam: Normal external nose present Face and sinus: Yes normal facial exam Mouth: Normal oral and palatal mucosa present, oropharynx normal and moist mucous membranes Throat: Yes posterior oropharynx normal Eyes: General: appearance normal, both eyes and all related structures Eyelids: Yes eyelids normal Conjunctivae: conjunctivae normal Sclerae: sclerae normal Pupils: Equal, round and reactive pupils present EOM: EOMs intact bilaterally Neck: Neck: Yes normal visual inspection, Yes full ROM and Yes no lymphadenopathy Lymphatic: no lymphadenopathy noted Chest: Chest palpation & inspection: normal inspection of the chest Resp: Effort & Inspection: normal respiratory effort and able to speak in complete sentences Auscultation: clear to auscultation bilaterally, no crackles, no rales, no rhonchi and no wheezes Cardio: Rate: regular rate Rhythm: regular rhythm Heart sounds: S1 normal heart sound present and S2 normal heart sound present GI: Inspection: Yes normal to inspection Skin: General skin exam: no rashes or lesions noted Trauma: no lacerations or abrasions Wounds: no wounds Neuro: General: patient oriented x3 and moves all extremities Cranial nerves: Yes Equal, round and reactive pupils present Extrem: General: Yes normal to inspection Right upper extremity: normal to inspection Left upper extremity: normal to inspection Right lower extremity: normal to inspection Left lower extremity: normal to inspection Medical Decision Making Medical Decision Making MDM Narrative: This is a 16-ltcu-vzb-male with a hx of ruptured TMs diagnosed in April, presenting to the emergency department with complaints of ongoing bilateral ear pain last month. Patient was seen in April for ruptured TM, given augmentin and ENT referral for follow up. On arrival, blood pressure elevated at 159/114, all other vital signs within normal limits. TMs with evidence of irregularity and infection > needs abx and follow up with ENT. Discussed the importance of following up. Pt understands and agrees with plan. Stable for d/c. Differential Diagnosis Differential Diagnoses: The differential diagnosis associated with the presentation includes TM perforation, otitis media, otitis externa, mastoiditis Discharge Plan Discharge Clinical Impression: Otitis externa, Otitis media, Tympanic membrane perforation Patient Disposition: Home, Self-Care Instructions: Otitis Externa (ED), Ruptured Eardrum (ED), How to Use Ear Drops (ED), Ear Infection (ED) Additional Instructions: You were seen in the emergency department due to ongoing ear pain. You have ruptured your ear drums in both your ears, and your right ear is infected. It is very important to continue using prescribed antibiotic ear drops as directed. It is also very important for you to follow-up with the research development manager, Dr. Storm. Call on Tuesday to make an appointment. If any new or worsening symptoms occur including but not limited to worsening ear pain, bleeding from ears, dizziness, headache, fevers, chills, nausea, vomiting, chest pain or shortness of breath, please return for re-evaluation. Prescriptions: New ofloxacin 0.3 % drops 10 drp otic (ear) right BID 7 Days Qty: 10 0RF No Action ibuprofen 600 mg tablet 600 mg PO TID PRN (Reason: pain) Qty: 10 0RF cyclobenzaprine 10 mg tablet 10 mg PO TID PRN (Reason: muscle spasm) Qty: 10 0RF lidocaine 5 % adhesive patch,medicated 3 patch topical DAILY Qty: 1 0RF Rx Instructions: leave on most painful area for up to 12 hrs amoxicillin-pot clavulanate 875-125 mg tablet 1 tab PO Q12H 10 Days Qty: 20 0RF naproxen 500 mg tablet 500 mg PO BID PRN (Reason: pain) 7 Days Qty: 14 0RF doxycycline hyclate 100 mg tablet 100 mg PO BID Qty: 20 0RF oxycodone 5 mg tablet 5 mg PO Q6H PRN (Reason: pain) Qty: 20 0RF Rx Instructions: Partial Fill upon patient request. Referrals: Vincent Storm [Physician] - Interventions: ED Discharge Assessment Last Done: 07/02/23 08:22 Discharge Date/Time: 07/02/23 08:23
== END 2023-07-02 08:23 | disposition home or self-care (01) ==
PROVIDERS: Emergency Provider Student in an Organized Health Care Education/Training Program; PCP Family Medicine
DX: H60.93 Unspecified otitis externa, bilateral (principal); H66.93 Otitis media, unspecified, bilateral; Z86.69 Personal history of other diseases of the nervous system and sense organs
CPT/HCPCS: 99283

== ENCOUNTER 2023-08-20 07:22 | Emergency (ER) | payer OTHER, SELFPAY ==
[2023-08-20] VITALS (8 sets, daily range): BP systolic 168–180; BP diastolic 107–111; PULSE 61–68; RESP 16–18; TEMP 36.4–37.1; O2SAT 97–99; BMI 38.0
--- NOTE | 2023-08-20 | ECG_ITS ---
Test Reason : sob Blood Pressure : / mmHG Vent. Rate : 061 BPM Atrial Rate : 061 BPM P-R Int : 158 ms QRS Dur : 098 ms QT Int : 458 ms P-R-T Axes : 030 011 076 degrees QTc Int : 461 ms Normal sinus rhythm Normal ECG When compared with ECG of 24-OCT-2022 04:43, T wave inversion no longer evident in Inferior leads Referred By: Generic ED Physician Electronically Signed By:TAYLOR MCCORMICK
--- NOTE | ~2023-08-20 | CT_ITS ---
EXAMINATION: CT HEAD WITHOUT CONTRAST CLINICAL INFORMATION: Dizziness headache COMPARISON: None available. TECHNIQUE: Contiguous axial imaging was performed from the skull base to vertex without intravenous administration of contrast. This CT examination was performed using dose optimization techniques as appropriate, variously including the following: *Automated exposure control *Adjustment of mA and/or kV according to patient size (this includes techniques or standardized protocols for targeted exams where dose is matched to indication/reason for exam; i.e. extremities or head) *Use of iterative reconstruction technique DLP: 727 mGy-cm FINDINGS: There is no evidence of acute intracranial hemorrhage or territorial infarction. No abnormal mass effect or midline shift is seen. Boyd to white matter differentiation is well preserved. No extra-axial fluid collections are identified. The ventricles are normal in size. There is no abnormal attenuation within the brain parenchyma. The osseous structures and soft tissues are normal. Small amount of fluid noted in the right mastoid air cells. The mastoid air cells and visualized portions of the paranasal sinuses are well aerated. CT/CT head/brain wo IV con IMPRESSION: 1. No acute intracranial pathology. 2. Small amount of fluid noted in the right mastoid air cells.
[2023-08-20 07:45] LABS: Basophils Percent Auto 0.3 % (0-2); Eosinophils Absolute Auto 0.6 X10*3/uL (0.0-0.4); Eosinophils Percent Auto 5.7 % (0-4); Hematocrit 46.2 % (42.0-52.0); Hemoglobin 15.3 g/dl (14.0-18.0); Imm Gran Abs Auto 0.04 X10*3/uL (0.00-0.03); Imm Gran Pct Auto 0.4 % (0.0-0.4); Lymphocytes Absolute Auto 2.2 X10*3/uL (1.2-4.9); Lymphocytes Percent Auto 23.1 % (20-40); MANUAL DIFF FLAG NO; Mean Corpuscular HGB Conc 33.1 g/dl (31.0-36.0); Mean Corpuscular Hemoglobin 23.7 pg (27.0-33.0); Mean Corpuscular Volume 71.6 fL (80.0-98.0); Mean Platelet Volume 10.5 fL (9.4-12.4); Monocytes Absolute Auto 0.7 X10*3/uL (0.1-1.2); Monocytes Percent Auto 6.9 % (2-11); Neutrophils Absolute Auto 6.2 x10*3/uL (2.0-8.3); Neutrophils Percent Auto 63.6 % (45-73); Platelet Count 239 X10*3/uL (160-400); Red Blood Count 6.45 X10*6/uL (4.60-5.80); Red Cell Distribution Width 16.1 % (11.0-16.0); White Blood Count 9.7 X10*3/uL (4.8-10.8)
--- NOTE | 2023-08-20 07:54 | ED.GENADULT ---
HPI - General Adult General Chief complaint: Dizziness Stated complaint: dizzy,sweaty Time Seen by Provider: 08/20/23 07:48 Source: patient Mode of arrival: ambulatory Limitations: no limitations History of Present Illness HPI narrative: 48-year-old male came in for evaluation of sudden onset dizziness, room spinning, vomiting, and bilateral ear ringing. Last meal was at 00:00 before he went to bed patient ate pizza woke up at 17:00 with epigastric pain started to have vomiting containing the food he ate in the last meal, started to feel room spinning, patient is diaphoretic, patient also stated that is been having heavy breathing, abdominal pain which he thinks due to vomiting that is getting better now. Patient otherwise decline weakness, numbness, speech problems. Patient with pertinent history of hypertension not taking blood pressure medication for the past few months. Related Data Previous Rx's Medication Instructions Recorded cyclobenzaprine 10 mg tablet 10 mg PO TID PRN muscle spasm #10 10/21/20 tabs ibuprofen 600 mg tablet 600 mg PO TID PRN pain #10 tabs 10/21/20 lidocaine 5 % topical patch 3 patch topical DAILY #1 ea 10/21/20 doxycycline hyclate 100 mg tablet 100 mg PO BID #20 tabs 11/07/22 oxycodone 5 mg tablet 5 mg PO Q6H PRN pain #20 tabs 11/07/22 amoxicillin 875 mg-potassium 1 tab PO Q12H 10 days #20 tabs 05/18/23 clavulanate 125 mg tablet naproxen 500 mg tablet 500 mg PO BID PRN pain 7 days #14 05/18/23 tabs ofloxacin 0.3 % ear drops 10 drp otic (ear) right BID 7 days 07/02/23 #10 mL amlodipine 5 mg tablet 5 mg PO DAILY #30 tabs 08/20/23 meclizine 25 mg tablet 25 mg PO BID PRN dizziness #20 tabs 08/20/23 Allergies Allergy/AdvReac Type Severity Reaction Status Date / Time No Known Allergies Allergy Verified 08/20/23 07:29 [No Known Allergies*] Review of Systems Review of Systems: All other systems are reviewed and are negative Constitutional: Reports as per HPI and Reports no additional constitutional complaints Eyes: Reports as per HPI and Reports no additional eye complaints Reports system reviewed and no additional complaints, except as documented Cardiovascular: Reports as per HPI and Reports no additional cardiovascular complaints Respiratory: Reports as per HPI and Reports no additional respiratory complaints Gastrointestinal: Reports as per HPI and Reports no additional gastrointestinal complaints Genitourinary: Reports no additional female genitourinary complaints Musculoskeletal: Reports no additional musculoskeletal complaints Skin/Breast: Reports system reviewed and no additional complaints, except as docu Psychiatric: Reports no additional psychiatric complaints Endocrine: Reports no additional endocrine complaints Hematologic/Lymphatic: Reports no additional hematologic/lymphatic complaints Allergic/Immunologic: Reports no additional allergic/immunologic complaints Reports system reviewed and no additional complaints, except as documented and Reports Abnormal speech present [facility] Social History Social History Alcohol intake: current Alcohol intake frequency: holidays/special occasions only Alcohol type: beer Substance Use Type: Hallucinogens Advance Directives: No Physical Exam ED Vital Signs: Vital Signs - 24 hr 08/20/23 07:23 08/20/23 08:17 08/20/23 10:10 Temperature 97.5 F Pulse Rate 65 61 Respiratory Rate 16 16 18 Blood Pressure 180/110 H 179/111 H Pulse Oximetry 98 99 98 Oxygen Delivery Method Room Air Room Air Room Air 08/20/23 12:15 08/20/23 14:19 08/20/23 14:34 Temperature Pulse Rate 66 65 64 Respiratory Rate 16 16 Blood Pressure 173/108 H 175/107 H 175/107 H Pulse Oximetry 99 99 98 Oxygen Delivery Method Room Air Room Air Room Air 08/20/23 15:13 Temperature 98.1 F Pulse Rate 64 Respiratory Rate 16 Blood Pressure 168/110 H Pulse Oximetry 97 Oxygen Delivery Method Room Air BMI result Body Mass Index 38.0 Vital signs have been reviewed and appear to be correct. Blood pressure elevated. Heart rate normal. Respiratory rate normal. Temperature normal. Oxygen saturation normal. Appearance: Alert. Oriented X3. No acute distress. Head: Normal external exam. Normocephalic. Atraumatic. No Engel signs noted. No raccoon eyes noted Eyes: PERRLA. EOMI. Conjunctiva and sclera normal. Eyelids normal. ENT: TM's Normal. Pharynx normal. Uvula midline. Moist mucous membranes. No trismus noted. No drooling noted. No muffled voice noted. Neck: Normal inspection. Neck supple. FROM. No adenopathy. Thyroid Normal. No meningeal signs. No neck mass noted. CVS: Normal heart rate and rhythm. Heart sound normal. No murmurs noted. Pulses normal throughout. Respiratory: No respiratory distress. Painless inspiration. Breath sounds normal. No wheezes/rales/rhonchi noted. Chest nontender. No accessory muscle usage noted or decreased air movement noted. Abdomen: Soft and nontender. Bowel sounds normal in all 4 quadrants. No distention noted. No organomegaly noted. No visible injury noted. Back: No CVA tenderness. Full range of motion noted. Skin: Skin warm and dry. Normal skin color. Normal skin turgor. No rashes/lesions/lacerations noted. Extremities: No lower extremity edema. Extremities exhibit normal range of motion. Extremities nontender. Neuro: Oriented X 3. Cranial nerve exam: II-XII are grossly intact No motor deficit. No sensory deficit. Reflexes normal. NIH Stroke Scale Internal: Initial- Upon Arrival Level of Consciousness: Alert Level of Consciousness Questions: Answers both questions correctly Level of Consciousness Commands: Performs both tasks correctly Best Gaze: Normal Visual: No visual loss Facial Palsy: Normal Motor Arm (Right): No drift Motor Arm (Left): No drift Motor Leg (Right): No drift Motor Leg (Left): No drift Limb Ataxia: Absent Sensory: Normal Best Language: No aphasia Dysarthia: Normal Extinction and Inattention: No abnormality Score: 0 Course Reevaluation(s) Reevaluation #1: Peripheral vertigo improved with meclizine patient has a normal neuro exam and negative head CT. noted to have high blood pressure patient is not taking blood pressure medication despite diagnosis of hypertension was established. Will start the patient on amlodipine and follow-up with PCP. Time: 14:26 Reevaluation #2: patient's symptoms improved, able to ambulate with steady gait. BP improved with amlodipine will start the patient on amlodipine patient was instructed to follow-up with PCP to continue with hypertension management as an outpatient. Time: 15:49 Medications Administered Discontinued Medications Generic Name Dose Route Start Last Admin Trade Name Freq PRN Reason Stop Dose Admin Amlodipine Besylate 5 mg 08/20/23 12:31 08/20/23 12:38 Amlodipine Besylate 5 Mg Tablet PO 08/20/23 12:32 5 mg ONCE ONE Administration Protocol Famotidine 20 mg 08/20/23 07:54 08/20/23 08:33 Famotidine/Pf 20 Mg/2 Ml Vial IVPUSH 08/20/23 07:55 20 mg ONCE ONE Administration Sodium Chloride 1,000 mls @ 999 mls/hr 08/20/23 07:54 08/20/23 11:20 Ns IV 08/20/23 08:54 Infused .Q1H1M ONE Infusion Meclizine HCl 25 mg 08/20/23 07:54 08/20/23 08:33 Meclizine Hcl 25 Mg Tablet PO 08/20/23 07:55 25 mg ONCE ONE Administration Ondansetron HCl 4 mg 08/20/23 07:54 08/20/23 08:33 Ondansetron Hcl 4 Mg/2 Ml Vial IVPUSH 08/20/23 07:55 4 mg ONCE ONE Administration Medical Decision Making Differential Diagnosis Differential Diagnoses: The differential diagnosis associated with the presentation includes ( Ischemic CVA, hemorrhagic CVA, peripheral positional vertigo, otitis media, sinus infection, hypertension, electrolyte derangement, severe anemia.) Admission/Observation Consideration of admission/observation: Escalation of care including admission/observation considered Lab Data MDM Lab Attestation statement: I reviewed the patient's lab results. 08/20/23 07:39 08/20/23 07:39 Labs: Lab Results 08/20/23 08/20/23 08/20/23 Range/Units 07:39 08:30 11:36 WBC 9.7 (4.8-10.8) X10*3/uL RBC 6.45 H (4.60-5.80) X10*6/uL Hgb 15.3 (14.0-18.0) g/dl Hct 46.2 (42.0-52.0) % MCV 71.6 L (80.0-98.0) fL MCH 23.7 L (27.0-33.0) pg MCHC 33.1 (31.0-36.0) g/dl RDW 16.1 H (11.0-16.0) % Plt Count 239 (160-400) X10*3/uL MPV 10.5 (9.4-12.4) fL Immature Gran % (Auto) 0.4 (0.0-0.4) % Neut % (Auto) 63.6 (45-73) % Lymph % (Auto) 23.1 (20-40) % [place] % (Auto) 6.9 (2-11) % Eos % (Auto) 5.7 H (0-4) % Baso % (Auto) 0.3 (0-2) % Lymph # (Auto) 2.2 (1.2-4.9) X10*3/uL [place] # (Auto) 0.7 (0.1-1.2) X10*3/uL Eos # (Auto) 0.6 H (0.0-0.4) X10*3/uL Baso # (Auto) 0.0 (0.0-0.2) X10*3/uL Abs Immat Gran (auto) 0.04 H (0.00-0.03) X10*3/uL Absolute Neuts (auto) 6.2 (2.0-8.3) x10*3/uL Absolute Nucleated RBC 0.000 (0.0-0.012) X10*3/uL Nucleated RBC % (auto) 0.0 (0.0-0.2) /100WBC Sodium 139 (135-145) mmol/L Potassium 3.5 (3.3-5.1) mmol/L Chloride 108 (96-108) mmol/L Carbon Dioxide 21 L (22-29) mmol/L Anion Gap 14 (12-20) BUN 17 H (9-16) mg/dL Creatinine 0.72 (0.5-1.4) mg/dL Estim Creat Clear Calc 154.9 Estimated GFR > 60 Random Glucose 126 H (60-115) mg/dL Calcium 9.0 (8.4-10.2) mg/dL Total Bilirubin 0.3 (0.0-1.0) mg/dL AST 25 (5-37) U/L ALT 20 (0-40) U/L Alkaline Phosphatase 101 (39-117) U/L Troponin I High Sens 4.2 11.0 D (<3.5-35.0) ng/L Total Protein 6.6 (6.5-8.0) g/dL Albumin 3.8 (3.5-5.0) g/dL Lipase 26 (8-78) U/L Independent Interpretation I performed an independent interpretation of an: CT Scan ( Head:1. No acute intracranial pathology. 2. Small amount of fluid noted in the right mastoid air cells. ) Radiology Impression Discussion of test interpretation with radiology: I have reviewed the radiologist's reading. Chronic Conditions Patient?s care impacted by: Hypertension Discharge Plan Discharge Clinical Impression: Benign paroxysmal positional vertigo, Hypertension Patient Disposition: Home, Self-Care Instructions: Benign Paroxysmal Positional Vertigo (ED), Hypertension (ED) Prescriptions: New amlodipine 5 mg tablet 5 mg PO DAILY Qty: 30 1RF meclizine 25 mg tablet 25 mg PO BID PRN (Reason: dizziness) Qty: 20 0RF No Action ibuprofen 600 mg tablet 600 mg PO TID PRN (Reason: pain) Qty: 10 0RF cyclobenzaprine 10 mg tablet 10 mg PO TID PRN (Reason: muscle spasm) Qty: 10 0RF lidocaine 5 % adhesive patch,medicated 3 patch topical DAILY Qty: 1 0RF Rx Instructions: leave on most painful area for up to 12 hrs amoxicillin-pot clavulanate 875-125 mg tablet 1 tab PO Q12H 10 Days Qty: 20 0RF naproxen 500 mg tablet 500 mg PO BID PRN (Reason: pain) 7 Days Qty: 14 0RF ofloxacin 0.3 % drops 10 drp otic (ear) right BID 7 Days Qty: 10 0RF doxycycline hyclate 100 mg tablet 100 mg PO BID Qty: 20 0RF oxycodone 5 mg tablet 5 mg PO Q6H PRN (Reason: pain) Qty: 20 0RF Rx Instructions: Partial Fill upon patient request. Referrals: Abram Lynch MD [Primary Care Provider] -
[2023-08-20 07:59] LABS: Alanine Aminotransferase 20 U/L (0-40); Albumin Level 3.8 g/dL (3.5-5.0); Alkaline Phosphatase 101 U/L (39-117); Anion Gap 14 (12-20); Aspartate Amino Transferase 25 U/L (5-37); Bilirubin Total 0.3 mg/dL (0.0-1.0); Blood Urea Nitrogen 17 mg/dL (9-16); Carbon Dioxide 21 mmol/L (22-29); Chloride 108 mmol/L (96-108); Creatinine Clr Calc Pharmacy 154.9; Estimated Glomerular Filt Rate > 60; Glucose Random 126 mg/dL (60-115); Potassium 3.5 mmol/L (3.3-5.1); Sodium 139 mmol/L (135-145); Total Protein 6.6 g/dL (6.5-8.0)
[2023-08-20 08:19] LABS: Lipase 26 U/L (8-78)
[2023-08-20] MEDS: 0.9 % Sodium Chloride 1,000 ML 999 ML IV (08:26)
[2023-08-20] MEDS: Meclizine HCl 25 MG TABLET PO (08:33)
[2023-08-20] MEDS: Famotidine/PF 20 MG/2 ML VIAL IVPUSH (08:33)
[2023-08-20] MEDS: ondansetron HCL 4 MG/2 ML VIAL IVPUSH (08:33)
[2023-08-20 08:57] LABS: Troponin-I High Sensitivity 4.2 ng/L (<3.5-35.0)
--- NOTE | 2023-08-20 10:28 | PC.NURSE ---
Patient reports headache has improved, food and fluids provided per patients request
[2023-08-20] MEDS: amLODIPine Besylate 5 MG TABLET PO (12:38)
== END 2023-08-20 16:06 | disposition home or self-care (01) ==
PROVIDERS: Emergency Provider Emergency Medicine; PCP Family Medicine
DX: H81.13 Benign paroxysmal vertigo, bilateral (principal); H92.03 Otalgia, bilateral; R06.02 Shortness of breath; R11.10 Vomiting, unspecified; R11.2 Nausea with vomiting, unspecified; I10 Essential (primary) hypertension; Z79.899 Other long term (current) drug therapy
CPT/HCPCS: 36415; 70450; 80053; 83690; 84484; 85025; 93005; 96361; 96374; 96375; 99285; J2405

== ENCOUNTER → 2023-08-20 07:31 | Outpatient (BNV) | payer OTHER, SELFPAY | PROVIDERS: Emergency Provider Emergency Medicine; PCP Family Medicine; Visit Provider Internal Medicine | DX: R06.02 Shortness of breath (principal) | CPT/HCPCS: 93010 ==

== ENCOUNTER 2023-08-24 09:18 | Observation (INO) | payer OTHER, SELFPAY ==
--- NOTE | 2023-08-24 | ECG_ITS ---
Test Reason : dizziness Blood Pressure : / mmHG Vent. Rate : 081 BPM Atrial Rate : 081 BPM P-R Int : 156 ms QRS Dur : 094 ms QT Int : 396 ms P-R-T Axes : 030 013 006 degrees QTc Int : 460 ms Normal sinus rhythm Normal ECG When compared with ECG of 20-AUG-2023 07:31, Nonspecific T wave abnormality now evident in Inferior leads Referred By: Generic ED Physician Electronically Signed By:Bao Prasad
--- NOTE | ~2023-08-24 | MR_ITS ---
EXAMINATION: MR BRAIN WITHOUT CONTRAST CLINICAL INFORMATION: Double vision. COMPARISON: Head CT dated 08/20/2023. TECHNIQUE: Multiplanar, multisequence imaging of the brain was performed without contrast. Limited study with motion artifacts. FINDINGS: No diffusion abnormalities are identified to suggest an acute infarct. The ventricles are normal in size. No mass effect or midline shift is seen. Nonspecific minimal scattered white matter signal changes are visible. No extra-axial fluid collections are seen. The brainstem and cerebellum are normal. The gradient refocused acquisition is normal. The craniovertebral junction, marrow signal, and midline structures are normal. The major intracranial flow voids at the level of the [place] are preserved. The dural venous sinus flow voids are maintained. A depressed defect in the medial wall of the right orbit may be chronically posttraumatic in etiology. There is no visible tethering or traction phenomenon upon the medial rectus muscle into the defect to indicate entrapment. There is a moderate dependent right mastoid effusion. Trace fluid visible in the left mastoid air cells. Mild ethmoid sinus mucosal thickening noted. The nasopharyngeal soft tissues appear normal. MR/MR head/brain wo con IMPRESSION: Limited study with motion artifacts. Nonspecific minimal white matter signal changes. No acute intracranial process. Chronic-appearing depressed defect in the medial wall of the right orbit without imaging findings to suggest entrapment of the medial rectus muscle. Moderate dependent right mastoid effusion. No suspicious soft tissue abnormality in the imaged nasopharynx.
[2023-08-24 09:58] VITALS: BP 138/99; PULSE 84; RESP 18; TEMP 36.9; O2SAT 96; BMI 38.0
[2023-08-24 10:21] LABS: MANUAL DIFF FLAG NO
[2023-08-24 10:28] LABS: Basophils Absolute Auto 0.1 X10*3/uL (0.0-0.2); Basophils Percent Auto 0.8 % (0-2); Eosinophils Absolute Auto 0.4 X10*3/uL (0.0-0.4); Eosinophils Percent Auto 4.7 % (0-4); Hemoglobin 15.7 g/dl (14.0-18.0); Imm Gran Abs Auto 0.07 X10*3/uL (0.00-0.03); Imm Gran Pct Auto 0.8 % (0.0-0.4); Lymphocytes Absolute Auto 1.8 X10*3/uL (1.2-4.9); Lymphocytes Percent Auto 20.7 % (20-40); Mean Corpuscular Hemoglobin 23.7 pg (27.0-33.0); Mean Platelet Volume 10.9 fL (9.4-12.4); Monocytes Absolute Auto 0.5 X10*3/uL (0.1-1.2); Monocytes Percent Auto 5.9 % (2-11); Neutrophils Percent Auto 67.1 % (45-73); Platelet Count 262 X10*3/uL (160-400); Red Blood Count 6.62 X10*6/uL (4.60-5.80); White Blood Count 8.9 X10*3/uL (4.8-10.8)
[2023-08-24 10:43] LABS: Anion Gap 9 (12-20); Blood Urea Nitrogen 14 mg/dL (9-16); Calcium 8.9 mg/dL (8.4-10.2); Carbon Dioxide 27 mmol/L (22-29); Chloride 109 mmol/L (96-108); Creatinine Clr Calc Pharmacy 113.8; Estimated Glomerular Filt Rate > 60; Glucose Random 145 mg/dL (60-115); Potassium 3.7 mmol/L (3.3-5.1); Sodium 141 mmol/L (135-145)
[2023-08-24 15:35] VITALS: BP 150/113; PULSE 79; RESP 16; TEMP 37.3
--- NOTE | 2023-08-24 15:37 | ED_ITS ---
HPI - Headache General Chief Complaint: Dizziness Stated Complaint: Dizzy Time Seen by Provider: 08/24/23 10:42 Source: patient Mode of arrival: ambulatory Limitations: no limitations History of Present Illness HPI Narrative: 48-year-old male who presents emergency department for evaluation of dizziness, double vision, headache. The patient states that on , 08/18/2023 (7 days prior to evaluation) he had a gradual onset of dizziness. He states that he felt lightheaded dizzy and off balance. He states that on Tuesday morning at around 03:00 hours the dizziness got worse and he also developed blurred vision. He was seen in the emergency department on 08/20/2023 , had a negative workup including negative CT scan and diagnosed with peripheral vertigo and started on meclizine. Patient states that the meclizine initially did help that his symptoms seemed to get worse and he felt more off balance. He states that this morning at 03:00 hours he developed double vision, called his PCP and he was advised to go to the emergency department for evaluation. Patient states he does have chronic migraine headaches but the headache that he has had over the last several days seems to be different. He states that the headache is more of a pressure-like sensation behind his eyes, associated with photophobia, nausea and vomiting. States that he is also noted weakness of his right arm. He denied fever but did have chills. He denied rhinorrhea, sore throat or cough. States that he gets occasional chest pain. He denied shortness of breath or dyspnea on exertion. Related Data Previous Rx's Medication Instructions Recorded cyclobenzaprine 10 mg tablet 10 mg PO TID PRN muscle spasm #10 10/21/20 tabs ibuprofen 600 mg tablet 600 mg PO TID PRN pain #10 tabs 10/21/20 lidocaine 5 % topical patch 3 patch topical DAILY #1 ea 10/21/20 doxycycline hyclate 100 mg tablet 100 mg PO BID #20 tabs 11/07/22 oxycodone 5 mg tablet 5 mg PO Q6H PRN pain #20 tabs 11/07/22 amoxicillin 875 mg-potassium 1 tab PO Q12H 10 days #20 tabs 05/18/23 clavulanate 125 mg tablet naproxen 500 mg tablet 500 mg PO BID PRN pain 7 days #14 05/18/23 tabs ofloxacin 0.3 % ear drops 10 drp otic (ear) right BID 7 days 07/02/23 #10 mL amlodipine 5 mg tablet 5 mg PO DAILY #30 tabs 08/20/23 meclizine 25 mg tablet 25 mg PO BID PRN dizziness #20 tabs 08/20/23 Allergies Allergy/AdvReac Type Severity Reaction Status Date / Time No Known Allergies Allergy Verified 08/20/23 07:29 [No Known Allergies*] Review of Systems 2 Review of Systems: Yes all other systems are reviewed and are negative [facility] Past Medical History [facility] Narrative: Past medical history: Hypertension. Social history: He denies tobacco, alcohol and drug use Social History Social History Alcohol intake: current Alcohol intake frequency: holidays/special occasions only Alcohol type: beer Substance Use Type: Hallucinogens Advance Directives: No Physical Exam 2 Vital Signs: Vital Signs: Last Vital Signs Temp 99.2 F 08/24/23 15:35 Pulse 79 08/24/23 15:35 Resp 16 08/24/23 15:35 BP 150/113 H 08/24/23 15:35 Pulse Ox 96 08/24/23 09:58 O2 Del Method Room Air 08/24/23 09:58 BMI result Body Mass Index 38.0 Vital signs revealed an elevated blood pressure otherwise unremarkable Exam: Exam: General: Awake, alert in no distress Head: Normocephalic, atraumatic EENT: PERRL, Lids normal, sclera normal, conjunctiva normal, nose normal , ears normal, throat without erythema or exudates Neck: Supple, no adenopathy Lung: breath sounds symmetric, no wheezing, rales or rhonchi Chest: symmetric movement, nontender Heart: regular rate and rhythm, normal S1, S2 no murmurs or rubs Abdomen: soft, non-tender, nondistended, normal bowel sounds Back: no vertebral tenderness, no CVAT Extremities: no deformities, moves all extremities symmetrically Neuro: General: Awake, alert, oriented and place. Speech is normal Cranial nerves: No facial droop, patient's right eye does lag the left eye moving laterally causing double vision which resolves with covering 1 eye Strength: Symmetric Cerebellar: Good rrtqcr-qo-lktk-to-finger, normal rapid finger movement, normal heel to baptiste, ataxic gait, unable to stand with feet together without tipping over NIH Stroke Scale Time: 16:39 Level of Consciousness: Alert Level of Consciousness Questions: Answers both questions correctly Level of Consciousness Commands: Performs both tasks correctly Best Gaze: Normal (Double vision with no gaze paralysis) Visual: No visual loss Facial Palsy: Normal Motor Arm (Right): No drift Motor Arm (Left): No drift Motor Leg (Right): No drift Motor Leg (Left): No drift Limb Ataxia: Absent Sensory: Normal Best Language: No aphasia Dysarthia: Normal Extinction and Inattention: No abnormality Score: 0 Medical Decision Making Medical Decision Making MDM Narrative: 48-year-old male who presents emergency department for evaluation of dizziness, double vision, headache. Patient's symptoms started 7 days prior to evaluation with gradual onset of dizziness which got progressively worse, dizziness is more of an off-balance sensation associated with blurred vision, but no double vision initially. Patient has a history of chronic headaches but states that his headache is different over the past 3-4 days. Patient was seen in the emergency department on 08/21/2023-had a negative CT Head was diagnosed with positional vertigo. Patient's symptoms have gotten progressively worse, he feels off balance and today he developed double vision. Vital signs revealed an elevated blood pressure. Patient's eye exam did reveal right eye lag with lateral movement compared to the left causing double vision which resolves with covering 1 eye. Patient also has an ataxic gait and has difficulty standing with his legs together and feels off balance. Differential diagnosis: ?Includes but is not limited to cerebellar stroke, positional vertigo, ocular cranial nerve palsy, migraine syndrome, anemia, electrolyte abnormalities Following evaluation was ordered: CBC, BMP, EKG, liver panel Course: 16:46 My interpretation patient's laboratory evaluation as follows: CBC and BMP were normal. Liver panel pending The patient's symptoms and physical exam are concerning for possible cerebellar stroke. The patient will need neurology consult, MRI and further workup for possible stroke therefore I will discuss admission with the covering hospitalist. Admission/Observation Consideration of admission/observation: Escalation of care including admission/observation considered Consult Healthcare Provider Management of the patient was discussed with: Hospitalist Lab Data [facility] Lab Attestation statement: I reviewed the patient's lab results. 08/24/23 10:11 03/27/24 10:11 Labs: Lab Results 08/24/23 Range/Units 10:11 WBC 8.9 (4.8-10.8) X10*3/uL RBC 6.62 H (4.60-5.80) X10*6/uL Hgb 15.7 (14.0-18.0) g/dl Hct 49.0 (42.0-52.0) % MCV 74.0 L (80.0-98.0) fL MCH 23.7 L (27.0-33.0) pg MCHC 32.0 (31.0-36.0) g/dl RDW 17.0 H (11.0-16.0) % Plt Count 262 (160-400) X10*3/uL MPV 10.9 (9.4-12.4) fL Immature Gran % (Auto) 0.8 H (0.0-0.4) % Neut % (Auto) 67.1 (45-73) % Lymph % (Auto) 20.7 (20-40) % [place] % (Auto) 5.9 (2-11) % Eos % (Auto) 4.7 H (0-4) % Baso % (Auto) 0.8 (0-2) % Lymph # (Auto) 1.8 (1.2-4.9) X10*3/uL [place] # (Auto) 0.5 (0.1-1.2) X10*3/uL Eos # (Auto) 0.4 (0.0-0.4) X10*3/uL Baso # (Auto) 0.1 (0.0-0.2) X10*3/uL Abs Immat Gran (auto) 0.07 H (0.00-0.03) X10*3/uL Absolute Neuts (auto) 6.0 (2.0-8.3) x10*3/uL Absolute Nucleated RBC 0.000 (0.0-0.012) X10*3/uL Nucleated RBC % (auto) 0.0 (0.0-0.2) /100WBC Sodium 141 (135-145) mmol/L Potassium 3.7 (3.3-5.1) mmol/L Chloride 109 H (96-108) mmol/L Carbon Dioxide 27 (22-29) mmol/L Anion Gap 9 L (12-20) BUN 14 (9-16) mg/dL Creatinine 0.98 (0.5-1.4) mg/dL Estim Creat Clear Calc 113.8 Estimated GFR > 60 Random Glucose 145 H (60-115) mg/dL Calcium 8.9 (8.4-10.2) mg/dL Independent Interpretation I performed an independent interpretation of an: EKG Interpretation: My independent interpretation patient's 12 EKG done at 10:04 hours is as follows: Normal sinus rhythm with a rate of 81, normal RI interval, QRS duration and QTC interval, no ST segment elevation, no ST segment depression, no significant T-wave abnormalities, no PACs, no PVCs Chronic Conditions Patient?s care impacted by: Hypertension Discharge Plan Discharge Patient Disposition: Admitted As Inpatient Prescriptions: No Action ibuprofen 600 mg tablet 600 mg PO TID PRN (Reason: pain) Qty: 10 0RF cyclobenzaprine 10 mg tablet 10 mg PO TID PRN (Reason: muscle spasm) Qty: 10 0RF lidocaine 5 % adhesive patch,medicated 3 patch topical DAILY Qty: 1 0RF Rx Instructions: leave on most painful area for up to 12 hrs amoxicillin-pot clavulanate 875-125 mg tablet 1 tab PO Q12H 10 Days Qty: 20 0RF naproxen 500 mg tablet 500 mg PO BID PRN (Reason: pain) 7 Days Qty: 14 0RF ofloxacin 0.3 % drops 10 drp otic (ear) right BID 7 Days Qty: 10 0RF doxycycline hyclate 100 mg tablet 100 mg PO BID Qty: 20 0RF oxycodone 5 mg tablet 5 mg PO Q6H PRN (Reason: pain) Qty: 20 0RF Rx Instructions: Partial Fill upon patient request. amlodipine 5 mg tablet 5 mg PO DAILY Qty: 30 1RF meclizine 25 mg tablet 25 mg PO BID PRN (Reason: dizziness) Qty: 20 0RF
--- NOTE | 2023-08-24 15:40 | MHC.EDTECH ---
This pct recorded vitals and vitals were very high. RN Aware
[2023-08-24 17:14] LABS: Alanine Aminotransferase 17 U/L (0-40); Albumin Level 3.9 g/dL (3.5-5.0); Alkaline Phosphatase 100 U/L (39-117); Aspartate Amino Transferase 19 U/L (5-37); Bilirubin Direct 0.1 mg/dL (0.0-0.5); Bilirubin Total 0.4 mg/dL (0.0-1.0); Total Protein 6.7 g/dL (6.5-8.0)
--- NOTE | 2023-08-24 17:19 | PM.IMHP ---
History of Present Illness Date of Service: 08/24/23 Chief Complaint: double vision 48M PMH HTN, obesity, recent otitis media, polysubstance abuse, presented with double vision. Patient has been having headache with nausea for about 1 week. On day of presentation started having double vision. Reports double vision in horizontal plane, comes and goes but mostly persistent. Denies fever, chills. Patient's father had CVA at [address] head was negative. Review of Systems Review of Systems: Yes all other systems are reviewed and are negative [facility] Medical History (Updated 08/24/23 @ 17:21 by Charles Amado MD) Hypertension Family History (Updated 08/24/23 @ 17:21 by Charles Amado MD) Father CVA (cerebral vascular accident) Social History Alcohol intake: current Alcohol intake frequency: holidays/special occasions only Alcohol type: beer Patient Tobacco Use Status: Never used Tobacco Substance Use Type: Hallucinogens Advance Directives: No Meds Allergies Allergy/AdvReac Type Severity Reaction Status Date / Time No Known Allergies Allergy Verified 08/20/23 07:29 [No Known Allergies*] Physical Exam Vital Signs and Narrative: Vital Signs: Last Vital Signs Temp 99.2 F 08/24/23 15:35 Pulse 79 08/24/23 15:35 Resp 16 08/24/23 15:35 BP 150/113 H 08/24/23 15:35 Pulse Ox 96 08/24/23 09:58 O2 Del Method Room Air 08/24/23 09:58 BMI result Body Mass Index 38.0 General: AO X 3, no acute distress Resp: CTA bilateral, no accessory muscles used CVS: S1,S2,RRR GI: soft, non tender, non distended Neuro: motor grossly intact, alert, left eye horizontal nystagmus, double vision Psych: appropriate affect, appropriate insight Results Labs 08/24/23 10:11 08/24/23 10:11 Labs: Laboratory Results - last 24 hr 08/24/23 10:11 MCV 74.0 L MCH 23.7 L MCHC 32.0 RDW 17.0 H Plt Count 262 MPV 10.9 Immature Gran % (Auto) 0.8 H Neut % (Auto) 67.1 Lymph % (Auto) 20.7 [place] % (Auto) 5.9 Eos % (Auto) 4.7 H Baso % (Auto) 0.8 Lymph # (Auto) 1.8 [place] # (Auto) 0.5 Eos # (Auto) 0.4 Baso # (Auto) 0.1 Abs Immat Gran (auto) 0.07 H Absolute Neuts (auto) 6.0 Absolute Nucleated RBC 0.000 Nucleated RBC % (auto) 0.0 Anion Gap 9 L Estim Creat Clear Calc 113.8 Estimated GFR > 60 Random Glucose 145 H Calcium 8.9 Total Bilirubin 0.4 Direct Bilirubin 0.1 AST 19 ALT 17 Alkaline Phosphatase 100 Total Protein 6.7 Albumin 3.9 Assessment and Plan (1) Hypertension: Status: Acute Plan 48M PMH HTN, obesity, recent otitis media presented with double vision Diplopia Differential includes complicated migraine, vestibular neuritis, acute CVA Monitor on tele MRI Neuro eval Aspirin statin Check lipids and A1c Hypertension amlodipine Obesity Weight loss recommended DVT prophylaxis with Lovenox Full Code Quality Stroke Does the patient have a stroke diagnosis?: No VTE Prior VTE?: No VTE Risk Level:: Medical - moderate - high VTE Device Contraindication: Treatment Not Indicated VTE Drug Contraindication: N/A - Med Ordered
--- NOTE | 2023-08-24 17:22 | PHA.MEDREC ---
Pharmacy Consult ? Medication Reconciliation Pharmacy has completed the medication reconciliation. Patient reported medications. Tara Donato, CamposD
[2023-08-24 17:53] LABS: Cholesterol 149 mg/dL (<200); HDL Cholesterol 34 mg/dL (>40); LDL Cholesterol Calculated 79 mg/dL (<100); Triglycerides 181 mg/dL (<150)
--- NOTE | 2023-08-24 20:54 | PC.NURSE ---
pt taken to MRI
[2023-08-24 21:13] VITALS: BP 146/103; PULSE 78; RESP 18; TEMP 36.4; O2SAT 96
[2023-08-24] MEDS: Atorvastatin Calcium 80 MG TABLET PO (21:33)
[2023-08-25 05:49] VITALS: BP 138/88; PULSE 85; RESP 15; TEMP 36.7; O2SAT 98
--- NOTE | 2023-08-25 05:50 | PC.NURSE ---
downtime from [id number]
[2023-08-25 06:17] LABS: Estimated Average Glucose 128 mg/dL; Hemoglobin A1c % 6.1 % (<6.0)
--- NOTE | 2023-08-25 06:22 | PC.NURSE ---
pt comes in ED from home after increasing dizziness, double vision and headache with nausea that s started one week ago. Presented at the ED on 08/19 and prescribed Meclizine for vertigo, however per pt, the medication is not helping much with the dizziness. Neuros all intact, pt can ambulate at baseline wnl, PMH: vertigo, HTN, oitis media, substance abuse. Plan: tele, MRI . Neuro evaluation, lipid redraw. Pt is on Regular diet.
[2023-08-25 08:26] LABS: Hematocrit 48.4 % (42.0-52.0); Hemoglobin 15.4 g/dl (14.0-18.0); Mean Corpuscular HGB Conc 31.8 g/dl (31.0-36.0); Mean Corpuscular Hemoglobin 23.4 pg (27.0-33.0); Mean Corpuscular Volume 73.6 fL (80.0-98.0); Mean Platelet Volume 10.9 fL (9.4-12.4); Platelet Count 245 X10*3/uL (160-400); Red Blood Count 6.58 X10*6/uL (4.60-5.80); Red Cell Distribution Width 17.1 % (11.0-16.0); White Blood Count 9.3 X10*3/uL (4.8-10.8)
[2023-08-25 08:41] LABS: Anion Gap 11 (12-20); Blood Urea Nitrogen 19 mg/dL (9-16); Calcium 9.1 mg/dL (8.4-10.2); Carbon Dioxide 30 mmol/L (22-29); Chloride 105 mmol/L (96-108); Creatinine Clr Calc Pharmacy 141.2; Estimated Glomerular Filt Rate > 60; Glucose Fasting 115 mg/dL (60-99); Iron 98 mcg/dL (45-160); Percent Iron Saturation 35 % (15-50); Potassium 3.8 mmol/L (3.3-5.1); Sodium 142 mmol/L (135-145); Total Iron Binding Capacity 278 mcg/dL (228-428); Unsaturated Iron Binding 180 ug/dL
[2023-08-25 08:56] LABS: Ferritin 76 ng/mL (20-250)
[2023-08-25 08:59] VITALS: BP 159/100; PULSE 71; RESP 20; TEMP 36.5; O2SAT 98
[2023-08-25] MEDS: 0.9 % Sodium Chloride Flush 3 ML SYRINGE IVFLUSH ×3 (09:02→19:33)
[2023-08-25] MEDS: Aspirin Enteric Coated 81 MG TABLET.DR PO (09:03)
[2023-08-25] MEDS: Enoxaparin Sodium 40 MG/0.4 ML SYRINGE SUBCUT (09:03)
[2023-08-25] MEDS: amLODIPine Besylate 5 MG TABLET PO (09:03)
--- NOTE | 2023-08-25 09:08 | PC.NURSE ---
pt is alert and oriented, skin is appropriate for ethnicity, respirations even and unlabored, ls clear, pt is still reporting feeling dizzy/like swaying and having a headache- pain 6/10, and very mild nausea, ns on the monitor but bp slightly elevated
--- NOTE | 2023-08-25 10:30 | P.CNNE_ITS ---
History of Present Illness Data of Consult Service Date: 08/25/23 Primary Care Provider: Unknown Physician HPI Reason for consult: Double vision 48 years old man with underlying diagnosis of hypertension and cocaine abuse came to hospital with new onset of blurred vision double vision and unsteadiness and dizziness. This started more than a day before he came to hospital. Double vision was intermittent with no particular trigger or type of the day when it was worse. There was no associated nausea or vomiting. He fell little bit unsteady and with blurred vision and dizzy when walking. There was no focal weakness or change in speech. He has been complaining of headache. Review of Systems 2 Review of Systems: No recent cold or flu-like illness PMFSH Past Medical History Medical History (Updated 08/25/23 @ 05:29 by Van Alvarez) Hypertension Family History Family History (Updated 08/24/23 @ 17:21 by Charles Amado MD) Father CVA (cerebral vascular accident) Social History Social History Alcohol intake: current Alcohol intake frequency: holidays/special occasions only Alcohol type: beer Patient Tobacco Use Status: Never used Tobacco Substance Use Type: Hallucinogens Advance Directives: No Meds Allergies Allergy/AdvReac Type Severity Reaction Status Date / Time No Known Allergies Allergy Verified 08/20/23 07:29 [No Known Allergies*] Active Medications: Current Medications Amlodipine Besylate (Amlodipine Besylate 5 Mg Tablet) 5 mg PO DAILY [facility]; Protocol Last Admin: 08/25/23 09:03 Dose: 5 mg Aspirin (Aspirin Enteric Coated 81 Mg Tablet.) 81 mg PO DAILY [facility] Last Admin: 08/25/23 09:03 Dose: 81 mg Atorvastatin Calcium (Atorvastatin Calcium 80 Mg Tablet) 80 mg PO BEDTIME [facility] Last Admin: 08/24/23 21:33 Dose: 80 mg Enoxaparin Sodium (Enoxaparin Sodium 40 Mg/0.4 Ml Syringe) 40 mg SUBCUT Q24H [facility] Last Admin: 08/25/23 09:03 Dose: 40 mg Lorazepam (Lorazepam 2 Mg/Ml Vial) 2 mg IVPUSH ONCE PRN PRN Reason: mri Meclizine HCl (Meclizine Hcl 25 Mg Tablet) 25 mg PO BID PRN PRN Reason: dizziness Sodium Chloride (0.9 % Sodium Chloride Flush 3 Ml Syringe) 3 ml IVFLUSH QSHIFT [facility] Last Admin: 08/25/23 09:02 Dose: 3 ml Physical Exam 2 Vital Signs: Vital Signs: Last Vital Signs Temp 97.7 F 08/25/23 08:59 Pulse 71 08/25/23 08:59 Resp 20 08/25/23 08:59 BP 159/100 H 08/25/23 08:59 Pulse Ox 98 08/25/23 08:59 O2 Del Method Room Air 08/25/23 08:59 BMI result Body Mass Index 38.0 Neuro: Other: He is alert and awake with normal spontaneity of speech fluency comprehension and affect. His left eye is slightly deviated medially. Pupils are 3 mm round reactive to light. Extraocular muscle examination otherwise did not reveal any significant abnormality. Left palpebral fissure is larger than right. Otherwise no significant weakness was noted. Bedside hearing was intact. There was no focal weakness. Plantars were flexors. Deep tendon reflexes were trace to absent. Speech was normal. Results Labs 08/25/23 07:52 08/25/23 07:52 Labs: Short CBC 08/25/23 Range/Units 07:52 WBC 9.3 (4.8-10.8) X10*3/uL Hgb 15.4 (14.0-18.0) g/dl Hct 48.4 (42.0-52.0) % Plt Count 245 (160-400) X10*3/uL BMP 08/24/23 08/25/23 10:11 07:52 Sodium 141 142 Potassium 3.7 3.8 Chloride 109 H 105 Carbon Dioxide 27 30 H BUN 14 19 H Creatinine 0.98 0.79 Calcium 8.9 9.1 Liver Function 08/24/23 Range/Units 10:11 Total Bilirubin 0.4 (0.0-1.0) mg/dL Direct Bilirubin 0.1 (0.0-0.5) mg/dL AST 19 (5-37) U/L ALT 17 (0-40) U/L Alkaline Phosphatase 100 (39-117) U/L Albumin 3.9 (3.5-5.0) g/dL Noncontrast head CT did not reveal any significant abnormality. Assessment and Plan (1) Double vision: Status: Acute 48 years old man with uncontrolled hypertension and history of cocaine abuse came to hospital with headache blurred vision double vision dizziness and unsteadiness. His examination reveals slight deviation of left high to words median and slight dilation of left palpebral fissure, which might been indication of facial neuropathy. Likely possibility is a stroke though differential diagnosis is broad. I would suggest obtaining at least an MRI of brain without contrast before pursuing other possibilities. In the meantime baby aspirin is recommended for prevention of further ischemic strokes. Procedures Date of Service Date of Service: 08/25/23
--- NOTE | 2023-08-25 11:16 | P.PNIM_ITS ---
Subjective Subjective Date of Service: 08/25/23 Interval History: still with dizziness, headache, no diplopia today Physical Exam 2 Vital Signs: Vital Signs: Last Vital Signs Temp 97.7 F 08/25/23 08:59 Pulse 71 08/25/23 08:59 Resp 20 08/25/23 08:59 BP 159/100 H 08/25/23 08:59 Pulse Ox 98 08/25/23 08:59 O2 Del Method Room Air 08/25/23 08:59 BMI result Body Mass Index 38.0 Neuro: Other: He is alert and awake with normal spontaneity of speech fluency comprehension and affect. His left eye is slightly deviated medially. Pupils are 3 mm round reactive to light. Extraocular muscle examination otherwise did not reveal any significant abnormality. Left palpebral fissure is larger than right. Otherwise no significant weakness was noted. Bedside hearing was intact. There was no focal weakness. Plantars were flexors. Deep tendon reflexes were trace to absent. Speech was normal. Objective Data Active Medications Amlodipine Besylate (Amlodipine Besylate 5 Mg Tablet) 5 mg PO DAILY [facility]; Protocol Last Admin: 08/25/23 09:03 Dose: 5 mg Documented By: ALYSSA Aspirin (Aspirin Enteric Coated 81 Mg Tablet.) 81 mg PO DAILY [facility] Last Admin: 08/25/23 09:03 Dose: 81 mg Documented By: ALYSSA Atorvastatin Calcium (Atorvastatin Calcium 80 Mg Tablet) 80 mg PO BEDTIME [facility] Last Admin: 08/24/23 21:33 Dose: 80 mg Documented By: DIOGENES Enoxaparin Sodium (Enoxaparin Sodium 40 Mg/0.4 Ml Syringe) 40 mg SUBCUT Q24H [facility] Last Admin: 08/25/23 09:03 Dose: 40 mg Documented By: ALYSSA Lorazepam (Lorazepam 2 Mg/Ml Vial) 2 mg IVPUSH ONCE PRN PRN Reason: mri Meclizine HCl (Meclizine Hcl 25 Mg Tablet) 25 mg PO BID PRN PRN Reason: dizziness Sodium Chloride (0.9 % Sodium Chloride Flush 3 Ml Syringe) 3 ml IVFLUSH QSHIFT [facility] Last Admin: 08/25/23 09:02 Dose: 3 ml Documented By: ALYSSA Labs 08/25/23 07:52 03/28/24 07:52 Labs: Laboratory Results - last 24 hr 08/24/23 08/25/23 10:11 07:52 MCV 73.6 L MCH 23.4 L MCHC 31.8 RDW 17.1 H Plt Count 245 MPV 10.9 Absolute Nucleated RBC 0.000 Nucleated RBC % (auto) 0.0 Anion Gap 11 L Estim Creat Clear Calc 141.2 Estimated GFR > 60 Fasting Glucose 115 H Estimat Average Glucose 128 Hemoglobin A1c % 6.1 H Calcium 9.1 Iron 98 TIBC 278 % Saturation 35 Unsat Iron Binding 180 Ferritin 76 Total Bilirubin 0.4 Direct Bilirubin 0.1 AST 19 ALT 17 Alkaline Phosphatase 100 Total Protein 6.7 Albumin 3.9 Triglycerides 181 H Cholesterol 149 LDL Cholesterol, Calc 79 HDL Cholesterol 34 L Assessment and Plan (1) Double vision: Status: Acute Plan 48M PMH HTN, obesity, recent otitis media presented with double vision Diplopia Differential includes complicated migraine, vestibular neuritis, acute CVA Monitor on tele MRI Neuro appreciated Aspirin statin predm a1c 6.1 weight loss, outpatient monitor Hypertension amlodipine Obesity Weight loss recommended DVT prophylaxis with Lovenox Full Code reason for continued hospitalization:pending mri Quality Stroke Does the patient have a stroke diagnosis?: No VTE Prior VTE?: No VTE Risk Level:: Medical - moderate - high VTE Device Contraindication: Treatment Not Indicated VTE Drug Contraindication: N/A - Med Ordered
--- NOTE | 2023-08-25 12:26 | MHC.CM.PN ---
Addendum entered by Mary Alice Packer 08/25/23 12:45: PCP verified as Arcelia Jones. Original Note: Met with patient in regards to discharge planning. Patient lives with a roommate, ambulates independently and had no services prior to coming to the hospital. No services anticipated to be needed because patient is not homebound. PCP is at [facility]. Patient is unsure of PCP's name. Patient received 2 Pfizer vaccines. No HCP. Patient's mother will transport patient home when medically stable. Obs notice explained and signed. Patient's mother will transport patient home when medically stable. Continue to monitor for d/c needs.
[2023-08-25 13:23] VITALS: BP 165/105; PULSE 68; RESP 12; O2SAT 97
[2023-08-25 15:55] VITALS: BP 136/98; PULSE 86; RESP 18; O2SAT 97
[2023-08-25] MEDS: LORazepam 2 MG/ML VIAL IVPUSH (15:56)
[2023-08-25] MEDS: Meclizine HCl 25 MG TABLET PO (15:59)
--- NOTE | 2023-08-25 15:59 | PC.NURSE ---
pt pre-medicated with ativan for the mri, supposed to get picked up around 161
[2023-08-25] MEDS: Atorvastatin Calcium 80 MG TABLET PO (19:32)
[2023-08-25 19:36] VITALS: BMI 38.0
[2023-08-25 20:00] VITALS: BP 145/86; PULSE 92; RESP 20; TEMP 36.2; O2SAT 93
[2023-08-26] VITALS: BP 114/75; PULSE 96; RESP 19; TEMP 36.6; O2SAT 94
[2023-08-26 04:00] VITALS: BP 116/68; PULSE 89; RESP 20; TEMP 36.5; O2SAT 95
[2023-08-26 07:57] VITALS: BP 126/88; PULSE 82; RESP 16; TEMP 36.6; O2SAT 97
--- NOTE | 2023-08-26 08:13 | PM.DS ---
DS: Providers Provider Date of Service: 08/26/23 Date of admission: 08/24/23 17:17 Primary care physician: NORY Werner Consults: 08/24/23 17:17 Consult to Neurology Routine Consulting Provider: [facility] Reason for consultation: double vision DS: Diagnosis Discharge Diagnosis (1) Double vision: Status: Acute DS: Summary Hospital Course Hospital Course: from initial hpi: 48M PMH HTN, obesity, recent otitis media, polysubstance abuse, presented with double vision. Patient has been having headache with nausea for about 1 week. On day of presentation started having double vision. Reports double vision in horizontal plane, comes and goes but mostly persistent. Denies fever, chills. Patient's father had CVA at [address] head was negative hospital course: Patient was admitted for diplopia. Concern was for posterior stroke. MRI was negative for acute stroke. Likely this is peripheral in origin. Diplopia has resolved, still has some dizziness We will continue symptomatic management with meclizine. Should follow up with Neurology as outpatient. Patient noted to have prediabetes with an A1c of 6.1. Also with obesity, weight loss is recommended. For hypertension was continued on amlodipine. Time Attestation Discharge Coordination Time (in mins): 35 Quality: Safe Use of Opioids Does Pt have an Active Cancer Diagnosis on the Problem List?: No Quality: Stroke Does the patient have a stroke diagnosis?: No Physical Exam Vital Signs: Vital Signs: Last Vital Signs Temp 97.8 F 08/26/23 07:57 Pulse 82 08/26/23 07:57 Resp 16 08/26/23 07:57 BP 126/88 08/26/23 07:57 Pulse Ox 97 08/26/23 07:57 O2 Del Method Room Air 08/26/23 07:57 BMI result Body Mass Index 38.0 Neuro: Other: He is alert and awake with normal spontaneity of speech fluency comprehension and affect. His left eye is slightly deviated medially. Pupils are 3 mm round reactive to light. Extraocular muscle examination otherwise did not reveal any significant abnormality. Left palpebral fissure is larger than right. Otherwise no significant weakness was noted. Bedside hearing was intact. There was no focal weakness. Plantars were flexors. Deep tendon reflexes were trace to absent. Speech was normal. DS: Data Data Completed and Pending Labs on day of discharge: Laboratory Results - last 24 hr 08/25/23 07:52 WBC 9.3 RBC 6.58 H Hgb 15.4 Hct 48.4 MCV 73.6 L MCH 23.4 L MCHC 31.8 RDW 17.1 H Plt Count 245 MPV 10.9 Absolute Nucleated RBC 0.000 Nucleated RBC % (auto) 0.0 Sodium 142 Potassium 3.8 Chloride 105 Carbon Dioxide 30 H Anion Gap 11 L BUN 19 H Creatinine 0.79 Estim Creat Clear Calc 141.2 Estimated GFR > 60 Fasting Glucose 115 H Calcium 9.1 Iron 98 TIBC 278 % Saturation 35 Unsat Iron Binding 180 Ferritin 76 Discharge Plan Discharge Anticipated Discharge Date/Time: 08/26/23 08:11 Patient Disposition: Home, Self-Care Discharge Diagnosis: diplopia Referrals: Tiffany Reis MD [Physician] - 1 Week Arcelia Jones PA [Primary Care Provider] - 1 Week Discharge Medications: Continued amlodipine 5 mg tablet 5 mg PO DAILY Qty: 30 1RF meclizine 25 mg tablet 25 mg PO BID PRN (Reason: dizziness) Qty: 20 0RF Discharge Orders: Discharge Order (Routine); Ordered 08/26/23 Ordered By: Charles Amado Diet: Advance to usual diet Activity on Discharge: As tolerated Stand Alone Forms: Patient Portal Discharge page Care Plan Goals: recovery Health Concerns: vertigo, diplopia Plan of Treatment: meclizine, follow up with neurology Assessment: see above
[2023-08-26] MEDS: Aspirin Enteric Coated 81 MG TABLET.DR PO (08:23)
[2023-08-26] MEDS: amLODIPine Besylate 5 MG TABLET PO (08:23)
--- NOTE | 2023-08-26 10:13 | MHC.CM.PN ---
Pt is medically cleared for D/C home self-care, pts mother to transport her home.
== END 2023-08-26 08:41 | disposition home or self-care (01) ==
LOC: HO.ED 16:54 → HO.EDOVER 17:22 → HO.IMC 08-25 15:20
PROVIDERS: Admitting Provider Internal Medicine; Emergency Provider Emergency Medicine Emergency Medical Services; PCP Physician Assistant; Visit Provider Internal Medicine
DX: H53.2 Diplopia (principal); R42 Dizziness and giddiness; H53.8 Other visual disturbances; I10 Essential (primary) hypertension; R51.9 Headache, unspecified; R11.0 Nausea; E66.9 Obesity, unspecified; Z68.38 Body mass index [BMI] 38.0-38.9, adult; R26.81 Unsteadiness on feet; R73.03 Prediabetes
CPT/HCPCS: 36415; 70551; 80048; 80061; 80076; 82728; 83036; 83540; 85025; 85027; 93005; 96372; 96374; 99222; 99285; J1650; J2060

== ENCOUNTER → 2023-08-24 10:04 | Outpatient (BNV) | payer OTHER, SELFPAY | PROVIDERS: Admitting Provider Internal Medicine; Emergency Provider Emergency Medicine Emergency Medical Services; Visit Provider Internal Medicine Cardiovascular Disease | DX: I10 Essential (primary) hypertension (principal) | CPT/HCPCS: 93010 ==

== ENCOUNTER → 2023-08-24 17:17 | Outpatient (BNV) | payer OTHER, SELFPAY | PROVIDERS: Admitting Provider Internal Medicine; Emergency Provider Emergency Medicine Emergency Medical Services; Visit Provider Internal Medicine | DX: H53.2 Diplopia (principal) | CPT/HCPCS: 99223; 99232; 99239 ==

== ENCOUNTER → 2023-08-24 17:17 | Outpatient (BNV) | payer OTHER, SELFPAY | PROVIDERS: Admitting Provider Internal Medicine; Emergency Provider Emergency Medicine Emergency Medical Services; Visit Provider Psychiatry & Neurology Neurology | DX: H53.2 Diplopia (principal) | CPT/HCPCS: 99222 ==

== ENCOUNTER 2023-12-26 12:02 | Emergency (ER) | payer OTHER, SELFPAY ==
[2023-12-26 12:19] VITALS: BP 178/115; PULSE 87; RESP 16; TEMP 36.8; O2SAT 96; BMI 38.6
[2023-12-26 12:25] VITALS: BP 178/115; PULSE 87; RESP 16; TEMP 36.8; O2SAT 96
--- NOTE | 2023-12-26 13:12 | ED_ITS ---
HPI - Extremity Problem General Chief complaint: Extremity Problem Stated complaint: cut on leg Time Seen by Provider: 12/26/23 12:40 Source: patient Mode of arrival: ambulatory Limitations: no limitations History of Present Illness ED Provider: Tamiko Dave PA-C HPI Narrative: 48 year old male with past medical history of psoriasis and eczema presents today with wound to the left lower leg that is painful to the touch. He states that about 1.5 weeks ago he was severely sick with a respiratory illness, he is not sure what viral illness it was. He says that about 1.5 weeks ago he noticed slight tingling and pain in the area where the wound is now, but did not notice any redness or swelling. He states that over the last 4-5 days the wound has gotten worse, and it has gotten red and swollen and the pain has increased dramatically. He says that the pain is constant and that walking on it causes severe pain radiating up his left leg. He is unsure where the injury came from, and says that he has been outside but only in his backyard. He believes that this could be a spider bite, and is less inclined to believe it is a tick bite as he has not had a history of ticks on his body. He does not endorse fevers, drainage or purulence from the wound. He endorses muscle pain around the wound at rest and when walking, and states that the pain has been increasing overtime. He currently has vasoline over the wound protect and help heal it. MD Complaint: extremity pain and extremity swelling Onset (ago): week(s) (1.5) Pain Consistency: constant Location: left and lower extremity Severity scale (1-10): 7 Quality: sharp and constant Radiation: proximal and distal Relieving factors: nothing Exacerbating factors: weight bearing, walking and palpation Associated symptoms: denies other symptoms Context: recent illness (Viral respiratory illness, unspecified) Related Data Previous Rx's ?Medication ?Instructions ?Recorded amlodipine 5 mg tablet 5 mg PO DAILY #30 tabs 08/20/23 meclizine 25 mg tablet 25 mg PO BID PRN dizziness #20 tabs 08/20/23 cephalexin 500 mg tablet 500 mg PO Q6H 7 days #28 tabs 12/26/23 doxycycline monohydrate 100 mg 100 mg PO BID #14 caps 12/26/23 capsule Allergies Allergy/AdvReac Type Severity Reaction Status Date / Time No Known Allergies Allergy Verified 12/26/23 12:21 [No Known Allergies*] Review of Systems Review of Systems: Yes all other systems are reviewed and are negative [facility] Past Medical History Medical History (Updated 12/26/23 @ 14:17 by NORY Byrd) Hypertension Family History Family History (Updated 08/24/23 @ 17:21 by Charles Amado MD) Father CVA (cerebral vascular accident) Social History Social History Household Members: Family Household Members Other:: 2 Housing: House Do you presently have visiting nurse or other home services: No Alcohol intake: current Alcohol intake frequency: holidays/special occasions only Alcohol type: beer Patient Tobacco Use Status: Never used Tobacco Smoked in Last 30 Days: Yes Use of substances other than those prescribed or required for medical reasons: No Substance Use Type: Hallucinogens Advance Directives: No Advance Directives Information Provided: Yes Do you have a plan to hurt others: No Plan service: No Physical Exam Vital Signs: Vital Signs: Last Vital Signs Temp 98.2 F 12/26/23 14:32 Pulse 87 12/26/23 14:32 Resp 16 12/26/23 14:32 BP 178/115 H 12/26/23 14:32 Pulse Ox 96 12/26/23 14:32 O2 Del Method Room Air 12/26/23 14:32 BMI result Body Mass Index 38.6 Appearance: Alert. Oriented X3. Mild acute distress. HEENT: normal inspection CVS: Normal heart rate and rhythm. Pulses normal. Respiratory: No respiratory distress. Skin: Skin warm and dry. Normal skin color. Normal skin turgor. Left lower leg has a 1cm wound with slight induration with a 3cm erythematous ring, exquisitely tender to palpation. Area is hard to palpation, relatively superficial. No drainage or discharge. Extremities: Left lower leg has wound on it with 3cm erythematous ring, exquisitely tender to palpitation and walking, Redness, no tingling or numbness, painful without movement. Neuro: Oriented X 3. No motor deficit. No sensory deficit. Medications Administered Discontinued Medications Generic Name Dose Route Start Last Admin Trade Name Freq PRN Reason Stop Dose Admin Cephalexin HCl 500 mg 12/26/23 13:51 12/26/23 14:03 Cephalexin 500 Mg Capsule PO 12/26/23 13:52 500 mg ONCE ONE Administration Doxycycline Monohydrate 100 mg 12/26/23 13:51 12/26/23 14:03 Doxycycline Monohydrate 100 Mg Capsule PO 12/26/23 13:52 100 mg ONCE ONE Administration Lidocaine HCl 2 ml 12/26/23 13:39 12/26/23 13:43 Lidocaine Hcl 1 % Mpf 2 Ml Vial INFILTRATI 12/26/23 13:40 2 ml ONCE ONE Administration Medical Decision Making Medical Decision Making MDM Narrative: A 48 year old male patient presents with a 1cm wound and 3cm erythematous ring around the wound on his left lower leg. There is severe pain and redness and swellling around the site, and the patient states that he believes it is a spider bite. Has been worsening over the last 4-5 days, painful at all times but specifically with palpitation and walking. Clinical exam supports thoughts of cellultis, tick bite, or spider bite as well as a possible abscess. Possibility of muscle infection as well, given clinical exam findings of exquisite tenderness and redness and swelling, however is very low in differentials at the moment. Low risk of DVT as the entire leg is not swollen or warm, and no calf pain with Homen sign. Wound was incised and drainged for small amount of bloody purulent material. tick borne panel sent. will cover with keflex and doxycycline. stable for discharge home w/ po abx and close monitoring. Differential Diagnosis Differential Diagnoses: The differential diagnosis associated with the presentation includes Spider bite, Cellultitis, Tick bite, abcess, DVT, Muscle infection (myositis), External Record Review External record reviewed: Outpatient record and Prior outpatient labs Prescription Management I considered prescription management with: Pain Medication and Antibiotic Chronic Conditions Patient?s care impacted by: Other (psoriasis) Procedures Abscess I/D Site: lower extremity Side (if applicable): left Local Anesthetic: lidocaine 1% Amount of anesthesia used (mL): 1 Technique: incised with blade Sent for culture/gram staining?: No Irrigation: Yes Packing used?: none Complications: pain Discharge Plan Discharge Clinical Impression: Cellulitis, Abscess Patient Disposition: Home, Self-Care Instructions: Cellulitis (DC), Abscess Incision and Drainage (DC) Additional Instructions: Use warm compresses to the area 3-4 times per day. Take the prescribed antibiotics as directed, complete the entire course and do not miss any doses If you develop new or worsening symptoms call 911 or come back to the ER for further evaluation. Prescriptions: New doxycycline monohydrate 100 mg capsule 100 mg PO BID Qty: 14 0RF cephalexin 500 mg tablet 500 mg PO Q6H 7 Days Qty: 28 0RF No Action amlodipine 5 mg tablet 5 mg PO DAILY Qty: 30 1RF meclizine 25 mg tablet 25 mg PO BID PRN (Reason: dizziness) Qty: 20 0RF Referrals: Arcelia Jones PA [Primary Care Provider] - Stand Alone Forms: Work/School Release Interventions: ED Discharge Assessment Last Done: 12/26/23 14:32 Discharge Date/Time: 12/26/23 14:32 Print Language: Azerbaijani
[2023-12-26] MEDS: Lidocaine HCl 1 % MPF 2 ML VIAL INFILTRATI (13:43)
[2023-12-26] MEDS: Doxycycline Monohydrate 100 MG CAPSULE PO (14:03)
[2023-12-26] MEDS: cephALEXin 500 MG CAPSULE PO (14:03)
--- NOTE | 2023-12-26 14:03 | PC.NURSE ---
Medicated per MAR.
[2023-12-26 14:32] VITALS: BP 178/115; PULSE 87; RESP 16; TEMP 36.8; O2SAT 96
[2023-12-27 13:27] LABS: Lyme Abs Screen <0.90 index
[2023-12-27 23:38] LABS: A. Phagocytphilium DNA,RT-PCR NOT DETECTED (NOT DETECTED); Babesia Microti DNA, RT-PCR NOT DETECTED (NOT DETECTED); Borrelia Miyamotoi,DNA RT-PCR NOT DETECTED (NOT DETECTED); E.Chaffeensis DNA RT-PCR NOT DETECTED (NOT DETECTED); Lyme(Borrelia ssp)DNA RT-PCR NOT DETECTED (NOT DETECTED)
== END 2023-12-26 14:32 | disposition home or self-care (01) ==
PROVIDERS: Physician Assistant; Emergency Provider Emergency Medicine; PCP Physician Assistant
DX: L02.416 Cutaneous abscess of left lower limb (principal); Z79.899 Other long term (current) drug therapy
CPT/HCPCS: 10060; 36415; 86617; 86618; 87468; 87469; 87478; 87484; 87798; 99284

== ENCOUNTER 2024-02-23 07:01 | Emergency (ER) | payer OTHER, SELFPAY ==
--- NOTE | ~2024-02-23 | CT_ITS ---
EXAMINATION: CT ABDOMEN AND PELVIS WITHOUT CONTRAST CLINICAL INFORMATION: Left lower quadrant pain and hematuria COMPARISON: None available. TECHNIQUE: Multidetector volumetric imaging was performed from the superior aspect of the liver through the pubic symphysis. Sagittal and coronal reformatted images were obtained on the technologist's workstation. This CT examination was performed using dose optimization techniques as appropriate, variously including the following: *Automated exposure control *Adjustment of mA and/or kV according to patient size (this includes techniques or standardized protocols for targeted exams where dose is matched to indication/reason for exam; i.e. extremities or head) *Use of iterative reconstruction technique DLP: 922 mGy-cm FINDINGS: LUNG BASES: The visualized lung bases are unremarkable. LIVER, GALLBLADDER, AND BILIARY TREE: The liver is normal in size, shape, and attenuation. No focal hepatic lesion or biliary ductal dilatation is present. The gallbladder is unremarkable with no evidence of radiopaque gallstones, gallbladder wall thickening, or obvious pericholecystic inflammatory changes. PANCREAS: Unremarkable. SPLEEN: Unremarkable. ADRENAL GLANDS: Unremarkable. KIDNEYS AND URETERS: The kidneys are normal in size, shape, and attenuation. No hydronephrosis, hydroureter, or calculi seen. No perinephric stranding. BLADDER: Unremarkable. GASTROINTESTINAL TRACT: The small and large bowel are unremarkable. The appendix is unremarkable. ABDOMINAL WALL: No significant hernia is appreciated. LYMPH NODES: Normal. VASCULAR: Unremarkable. PELVIC VISCERA: Unremarkable. OSSEOUS STRUCTURES: There is a scoliosis convex to the left along with mild degenerative changes in the spine at L3-L4. CT/CT abdomen pelvis wo IV con IMPRESSION: A cause for the patient's left lower quadrant pain and hematuria has not been found. Fleischner guidelines were followed. Electronically signed by: Cachorro Quinn MD 02/23/2024 10:27 AM EDT
[2024-02-23 07:07] VITALS: BP 179/116; PULSE 93; RESP 18; TEMP 37; O2SAT 96; BMI 38.8
--- NOTE | 2024-02-23 07:11 | ED_ITS ---
HPI - Male Genitourinary General Chief complaint: Urogenital-Male Stated complaint: Blood in urine Time Seen by Provider: 02/23/24 07:11 Source: patient and RN notes reviewed Mode of arrival: ambulatory Limitations: no limitations History of Present Illness ED Provider: mirlande HPI Narrative: Patient is a 48-year-old male presenting to the ED with compaint of left lower quadrant abdominal pain radiating into groin since yesterday am, around midnight noted hematuria. Describes this as normal urination followed by benjamin red blood. Also reports bilateral flank pain. Some nausea earlier but denies vomiting. Denies fever. Denies any testicular pain or swelling. Denies penile discharge. Reports family history of kidney stones in mother and brother. Rates current pain at 5/10. MD Complaint: other Onset (ago): hour(s) Location: left inguinal region Severity scale (1-10): 5 Quality: sharp Associated symptoms: Reports blood in urine Related Data Previous Rx's ?Medication ?Instructions ?Recorded amlodipine 5 mg tablet 5 mg PO DAILY #30 tabs 08/20/23 meclizine 25 mg tablet 25 mg PO BID PRN dizziness #20 tabs 08/20/23 cephalexin 500 mg tablet 500 mg PO Q6H 7 days #28 tabs 12/26/23 doxycycline monohydrate 100 mg 100 mg PO BID #14 caps 12/26/23 capsule cefuroxime axetil 500 mg tablet 500 mg PO BID #14 tabs 02/23/24 Allergies Allergy/AdvReac Type Severity Reaction Status Date / Time No Known Allergies Allergy Verified 02/23/24 07:07 [No Known Allergies*] Review of Systems 2 Review of Systems: As per HPI. Yes all other systems are reviewed and are negative Constitutional: Constitutional: Reports as per HPI [facility] Past Medical History Medical History (Updated 02/23/24 @ 10:42 by Olivia Wilson NP) Hypertension Family History Family History (Updated 08/24/23 @ 17:21 by Charles Amado MD) Father CVA (cerebral vascular accident) Social History Social History Household Members: Family Household Members Other:: 2 Housing: House Do you presently have visiting nurse or other home services: No Alcohol intake: current Alcohol intake frequency: holidays/special occasions only Alcohol type: beer Patient Tobacco Use Status: Never used Tobacco Smoked in Last 30 Days: No Substance Use Type: Hallucinogens Advance Directives: No Advance Directives Information Provided: Yes service: No Physical Exam 2 Vital Signs: Vital Signs: Last Vital Signs Temp 98.6 F 02/23/24 07:07 Pulse 83 02/23/24 08:52 Resp 18 02/23/24 08:52 BP 169/102 H 02/23/24 09:37 Pulse Ox 94 02/23/24 08:52 O2 Del Method Room Air 02/23/24 08:52 BMI result Body Mass Index 38.8 Vital signs have been reviewed and appear to be correct. Blood pressure elevated. Heart rate normal. Respiratory rate normal. Temperature normal. Oxygen saturation normal. Const: General: cooperative, healthy appearing and no acute distress O rientation/consciousness: oriented to person, oriented to place, oriented to time and patient oriented x3 Limitations: no limitations HEENT: Head: Yes normocephalic and Yes atraumatic Ears: external ears normal General nose exam: Normal external nose present Face and sinus: Yes face symmetric Mouth: oropharynx normal and moist mucous membranes Throat: Yes uvula midline Eyes: Pupils: Equal, round and reactive pupils present Neck: Neck: Yes normal visual inspection and Yes supple Resp: Effort & Inspection: normal respiratory effort and able to speak in complete sentences Auscultation: clear to auscultation bilaterally Cardio: Rate: regular rate Rhythm: regular rhythm Heart sounds: S1 normal heart sound present and S2 normal heart sound present GI: Palpation (GI): Soft to palpation, Tenderness to palpation present (GI) in the LLQ, no guarding and No Rebound tenderness present Auscultation: n ormoactive bowel sounds : General: Yes CVA tenderness bilateral (L>R) Back/Spine/Pelvis: Back: CVA tenderness Skin: General skin exam: elasticity normal and turgor normal Neuro: General: oriented to person, oriented to place, oriented to time, patient oriented x3, moves all extremities, no focal motor deficits and CN's II- XI intact bilaterally Cranial nerves: Yes Equal, round and reactive pupils present Cognition (Neuro): normal cognition Extrem: General: Yes full ROM, Yes no pedal edema and Yes no calf tenderness Psych: Mental Status: mental status grossly normal Affect: normal affect Thought process: Normal thought process present Medications Administered Discontinued Medications Generic Name Dose Route Start Last Admin Trade Name Mercedes PRN Reason Stop Dose Admin Sodium Chloride 1,000 mls @ 999 mls/hr 02/23/24 07:30 02/23/24 09:38 Ns IV 02/23/24 08:30 Infused .Q1H1M FRANKLYN Infusion Ketorolac Tromethamine 15 mg 02/23/24 07:17 02/23/24 07:44 Ketorolac Tromethamine 15 Mg/Ml Vial IVPUSH 02/23/24 07:18 15 mg ONCE ONE Administration Valsartan 80 mg 02/23/24 09:09 02/23/24 09:37 Valsartan 80 Mg Tablet PO 02/23/24 09:10 80 mg ONCE ONE Administration Protocol Medical Decision Making Medical Decision Making [facility] Narrative: Patient is a 48-year-old male presenting to the ED with compaint of left lower quadrant abdominal pain radiating into groin since yesterday am, around midnight noted hematuria. On exam patient is awake, A+Ox3, BP elevated, VS otherwise WNL, afebrile, normal neurological exam without focal deficits, physical exam findings as above. Patient states he did not take his BP medication this morning. Given reported symptoms and physical exam findings, initial differential includes renal/ureteral calculi, hydronephrosis, UTI/pyelonephritis, STI. Labs notable for mild leukocytosis, no evidence of CHARITO, no significant electrolyte abnormalities. CT A/P notable for no evidence renal or ureteral calculi, hydronephrosis. My interpretation is in agreement with the radiologist's interpretation. Urinalysis notable for 3+ blood, 2+ leukocytes, >[address] NG urine pending, patient will be updated on results. Will treat for UTI at this time, advised patient to follow up with PCP. Will refer to urology for ongoing symptoms. Return precautions discussed at bedside. Patient verbalized understanding of and agreement with plan. Differential Diagnosis Differential Diagnoses: The differential diagnosis associated with the presentation includes As per [facility] Admission/Observation Consideration of admission/observation: Escalation of care including admission/observation considered Patient would have been admitted to the hospital had their work up had any findings where hospital admission was appropriate and their clinical presentation warranted hospital admission. Lab Data [facility] Lab Attestation statement: I reviewed the patient's lab results. as per [facility] 02/23/24 07:41 02/23/24 08:49 Labs: Lab Results 02/23/24 02/23/24 Range/Units 07:41 08:49 WBC 11.8 H (4.8-10.8) X10*3/uL RBC 6.42 H (4.60-5.80) X10*6/uL Hgb 15.1 (14.0-18.0) g/dl Hct 46.7 (42.0-52.0) % MCV 72.7 L (80.0-98.0) fL MCH 23.5 L (27.0-33.0) pg MCHC 32.3 (31.0-36.0) g/dl RDW 16.5 H (11.0-16.0) % Plt Count 246 (160-400) X10*3/uL MPV 12.5 H (9.4-12.4) fL Immature Gran % (Auto) 0.7 H (0.0-0.4) % Neut % (Auto) 73.7 H (45-73) % Lymph % (Auto) 17.1 L (20-40) % Fleming % (Auto) 5.7 (2-11) % Eos % (Auto) 2.2 (0-4) % Baso % (Auto) 0.6 (0-2) % Lymph # (Auto) 2.0 (1.2-4.9) X10*3/uL Fleming # (Auto) 0.7 (0.1-1.2) X10*3/uL Eos # (Auto) 0.3 (0.0-0.4) X10*3/uL Baso # (Auto) 0.1 (0.0-0.2) X10*3/uL Abs Immat Gran (auto) 0.08 H (0.00-0.03) X10*3/uL Absolute Neuts (auto) 8.7 H (2.0-8.3) x10*3/uL Absolute Nucleated RBC 0.000 (0.0-0.012) X10*3/uL Nucleated RBC % (auto) 0.0 (0.0-0.2) /100WBC Smear Tech's Comments VERIFIED Sodium 142 (135-145) mmol/L Potassium 3.7 (3.3-5.1) mmol/L Chloride 109 H (96-108) mmol/L Carbon Dioxide 26 (22-29) mmol/L Anion Gap 11 L (12-20) BUN 15 (9-16) mg/dL Creatinine 0.87 (0.5-1.4) mg/dL Estim Creat Clear Calc 129.6 Estimated GFR > 60 Random Glucose 178 H (60-115) mg/dL Calcium 8.8 (8.4-10.2) mg/dL Total Bilirubin 0.4 (0.0-1.0) mg/dL AST 19 (5-37) U/L ALT 13 (0-40) U/L Alkaline Phosphatase 78 (39-117) U/L Total Protein 6.2 L (6.5-8.0) g/dL Albumin 3.7 (3.5-5.0) g/dL Urine Color PINK Urine Appearance Cloudy Urine pH 6.0 (5.0-9.0) Ur Specific Bryant 1.020 (1.005-1.025) Urine Protein Trace (Neg-Trace) mg/dL Urine Glucose (UA) Negative (Negative) mg/dL Urine Ketones Negative (Negative) mg/dL Urine Blood Large (3+) H (Negative) Urine Nitrite Negative (Negative) Ur Leukocyte Esterase Moderate (2+) H (Negative) Urine RBC >20 H (0-2) /HPF Urine WBC >50 H (0-5) /HPF Ur Squamous Epith Cells 0-2 (0-2) /HPF Urine Bacteria None Seen (None Seen) Hyaline Casts 0-2 (0-2) /LPF Independent Interpretation I performed an independent interpretation of an: CT Scan Interpretation: CT A/P notable for no evidence renal or ureteral calculi, hydronephrosis. Radiology Impression Discussion of test interpretation with radiology: I have reviewed the radiologist's reading. Radiologist Impression: CT/CT abdomen pelvis wo IV con IMPRESSION: A cause for the patient's left lower quadrant pain and hematuria has not been found. Fleischner guidelines were followed. External Record Review External record reviewed: Inpatient record, Office record and Outpatient record Prescription Management I considered prescription management with: Antibiotic Discharge Plan Discharge Clinical Impression: Urinary tract infection Patient Disposition: Home, Self-Care Instructions: Cefuroxime (By mouth), Urinary Tract Infection in Men (DC) Additional Instructions: You have been evaluated in the emergency department today for your urinary symptoms. Your evaluation, including urinalysis, suggests that your symptoms are due to urinary tract infection. Please take your prescribed antibiotics for the full course of medication as directed. You were tested for sexually transmitted infections, the results are pending and you will be contacted with any positive results. Please follow-up with your primary care provider within 2 days. Return to the emergency department if you experience fevers 100.4? F or greater, worsening or uncontrolled pain, vomiting, flank pain, or for any other concerning symptoms. Prescriptions: New cefuroxime axetil 500 mg tablet 500 mg PO BID Qty: 14 0RF No Action amlodipine 5 mg tablet 5 mg PO DAILY Qty: 30 1RF meclizine 25 mg tablet 25 mg PO BID PRN (Reason: dizziness) Qty: 20 0RF doxycycline monohydrate 100 mg capsule 100 mg PO BID Qty: 14 0RF cephalexin 500 mg tablet 500 mg PO Q6H 7 Days Qty: 28 0RF [place] [facility] [place] [facility] [place] Group] Print Language: Belarusian
[2024-02-23] MEDS: 0.9 % Sodium Chloride 1,000 ML 999 ML IV (07:44)
[2024-02-23] MEDS: Ketorolac Tromethamine 15 MG/ML VIAL IVPUSH (07:44)
[2024-02-23 07:56] LABS: Appearance Urine Cloudy; Bacteria Urine None Seen (None Seen); Glucose Urine UA Negative (Negative); Hyaline Casts Urine 0-2 /LPF (0-2); Leukocyte Esterase Urine Moderate (2+) (Negative); Nitrite Urine Negative (Negative); RBC Urine >20 /HPF (0-2); Squamous Epithelial Cell Urine 0-2 /HPF (0-2); UACC Culture Trigger YES; UMIC TRIGGER UACC YES; Urine Blood Large (3+) (Negative); Urine Ketones Negative (Negative); Urine Protein Trace mg/dL (Neg-Trace); WBC Urine >50 /HPF (0-5)
[2024-02-23 07:57] LABS: Color Urine PINK
[2024-02-23 08:17] LABS: Basophils Absolute Auto 0.1 X10*3/uL (0.0-0.2); Basophils Percent Auto 0.6 % (0-2); Eosinophils Absolute Auto 0.3 X10*3/uL (0.0-0.4); Eosinophils Percent Auto 2.2 % (0-4); Hematocrit 46.7 % (42.0-52.0); Hemoglobin 15.1 g/dl (14.0-18.0); Imm Gran Abs Auto 0.08 X10*3/uL (0.00-0.03); Imm Gran Pct Auto 0.7 % (0.0-0.4); Lymphocytes Percent Auto 17.1 % (20-40); MANUAL DIFF FLAG SCAN; Mean Corpuscular HGB Conc 32.3 g/dl (31.0-36.0); Mean Corpuscular Hemoglobin 23.5 pg (27.0-33.0); Mean Corpuscular Volume 72.7 fL (80.0-98.0); Monocytes Absolute Auto 0.7 X10*3/uL (0.1-1.2); Monocytes Percent Auto 5.7 % (2-11); Neutrophils Absolute Auto 8.7 x10*3/uL (2.0-8.3); Neutrophils Percent Auto 73.7 % (45-73); PLT CLUMP 1; Red Blood Count 6.42 X10*6/uL (4.60-5.80); Red Cell Distribution Width 16.5 % (11.0-16.0); SCAN SMEAR FLAG 1
[2024-02-23 08:18] LABS: White Blood Count 11.8 X10*3/uL (4.8-10.8)
[2024-02-23 08:52] VITALS: BP 169/102; PULSE 83; RESP 18; O2SAT 94
[2024-02-23 09:11] LABS: Mean Platelet Volume 12.5 fL (9.4-12.4); Platelet Count 246 X10*3/uL (160-400)
[2024-02-23 09:12] LABS: SLIDE REVIEW VERIFIED
[2024-02-23 09:20] LABS: Alanine Aminotransferase 13 U/L (0-40); Albumin Level 3.7 g/dL (3.5-5.0); Alkaline Phosphatase 78 U/L (39-117); Anion Gap 11 (12-20); Aspartate Amino Transferase 19 U/L (5-37); Bilirubin Total 0.4 mg/dL (0.0-1.0); Blood Urea Nitrogen 15 mg/dL (9-16); Calcium 8.8 mg/dL (8.4-10.2); Carbon Dioxide 26 mmol/L (22-29); Chloride 109 mmol/L (96-108); Creatinine Clr Calc Pharmacy 129.6; Estimated Glomerular Filt Rate > 60; Glucose Random 178 mg/dL (60-115); Potassium 3.7 mmol/L (3.3-5.1); Sodium 142 mmol/L (135-145); Total Protein 6.2 g/dL (6.5-8.0)
[2024-02-23 09:37] VITALS: BP 169/102
[2024-02-23] MEDS: Valsartan 80 MG TABLET PO (09:37)
[2024-02-23 11:18] VITALS: BP 154/80; PULSE 78; RESP 18; TEMP 36.7; O2SAT 97
[2024-02-23 14:53] LABS: CT PCR NOT DETECTED (Not Detect.); NG PCR DETECTED (Not Detect.)
== END 2024-02-23 11:18 | disposition home or self-care (01) ==
PROVIDERS: Registered Nurse Emergency; Emergency Provider Student in an Organized Health Care Education/Training Program
DX: N39.0 Urinary tract infection, site not specified (principal); R31.9 Hematuria, unspecified; R10.32 Left lower quadrant pain; R11.0 Nausea; Z79.899 Other long term (current) drug therapy
CPT/HCPCS: 36415; 74176; 80053; 81001; 85025; 87086; 87491; 87591; 96361; 96374; 99284; 99285; J1885

== ENCOUNTER 2024-02-28 08:54 | Emergency (ER) | payer OTHER, SELFPAY ==
[2024-02-28 09:09] VITALS: BP 152/104; PULSE 82; RESP 18; TEMP 36.8; O2SAT 94; BMI 38.0
--- NOTE | 2024-02-28 09:57 | ED.GENADULT ---
HPI - General Adult General Chief complaint: Recheck/Abnormal Lab/Rx Stated complaint: sts was called back to for injection Time Seen by Provider: 02/28/24 09:34 Source: patient Mode of arrival: ambulatory Limitations: no limitations History of Present Illness ED Provider: Elmer Jarvis HPI narrative: 48-year-old male presents to the ED for treatment for gonorrhea. Patient states he had some dysuria which was why he was tested for gonorrhea and now presents to the ED to get treated. Patient states no sexual activity or new symptoms since last sexual encounter. Patient denies any abdominal pain, nausea, vomiting, flank pain, fever, chills, testicular pain, penile lesions, penile discharge Related Data Previous Rx's ?Medication ?Instructions ?Recorded amlodipine 5 mg tablet 5 mg PO DAILY #30 tabs 08/20/23 meclizine 25 mg tablet 25 mg PO BID PRN dizziness #20 tabs 08/20/23 cephalexin 500 mg tablet 500 mg PO Q6H 7 days #28 tabs 12/26/23 doxycycline monohydrate 100 mg 100 mg PO BID #14 caps 12/26/23 capsule cefuroxime axetil 500 mg tablet 500 mg PO BID #14 tabs 02/23/24 Allergies Allergy/AdvReac Type Severity Reaction Status Date / Time No Known Allergies Allergy Verified 02/28/24 09:10 [No Known Allergies*] Review of Systems Review of Systems: dysuria Yes all other systems are reviewed and are negative [facility] Past Medical History Medical History (Updated 02/28/24 @ 10:01 by NORY Schmidt) Hypertension Family History Family History (Updated 08/24/23 @ 17:21 by Charles Amado MD) Father CVA (cerebral vascular accident) Social History Social History Household Members: Family Household Members Other:: 2 Housing: House Do you presently have visiting nurse or other home services: No Alcohol intake: current Alcohol intake frequency: holidays/special occasions only Alcohol type: beer Patient Tobacco Use Status: Never used Tobacco Substance Use Type: Hallucinogens Advance Directives: No Do you have a plan to hurt others: No Plan service: No Physical Exam ED Vital Signs: Vital Signs - 24 hr 02/28/24 09:09 02/28/24 10:36 Temperature 98.2 F 98.2 F Pulse Rate 82 82 Respiratory Rate 18 18 Blood Pressure 152/104 H 152/104 H Pulse Oximetry 94 94 Oxygen Delivery Method Room Air Room Air BMI result Body Mass Index 38.0 Const General: cooperative, healthy appearing, comfortable, no acute distress, well developed, alert, awake and Physically active Orientation/consciousness: patient oriented x3 HENTN Head: Yes normal to inspection, Yes No palpable skull fracture present, Yes normocephalic and Yes atraumatic Throat: Yes posterior oropharynx normal, Yes tonsils normal and Yes uvula midline Eyes General: appearance normal, both eyes and all related structures Neck Neck: Yes normal visual inspection, Yes full ROM, Yes no lymphadenopathy, Yes no meningeal signs, Yes trachea midline, Yes supple, No anterior neck swelling and No tender Chest Chest palpation & inspection: normal inspection of the chest and normal palpation of entire chest wall Resp Effort & Inspection: normal respiratory effort and able to speak in complete sentences Auscultation: clear to auscultation bilaterally Cardio Jugular venous distension: no JVD Heart sounds: S1 normal heart sound present and S2 normal heart sound present GI Inspection: Yes normal to inspection Palpation (GI): Soft to palpation, not firm, nontender, no guarding and not rigid Other: deferred General: No CVA tenderness and Yes no CVA tenderness Back/Spine/Pelvis Back: no CVA tenderness, No CVA tenderness and No back tenderness Skin General skin exam: no rashes or lesions noted, elasticity normal and turgor normal Neuro General: patient oriented x3, gait normal, tone normal, moves all extremities, Normal light touch and pain sensation, no meningeal signs, no focal motor deficits, CN's II-XI intact bilaterally and normal sensation to monofilament Extrem General: Yes normal to inspection, Yes full ROM and Yes capillary refill normal Psych Appearance: grossly normal, well kempt and not disheveled Medications Administered Discontinued Medications Generic Name Dose Route Start Last Admin Trade Name Freq PRN Reason Stop Dose Admin Ceftriaxone Sodium 500 mg/ 0 mg 02/28/24 09:55 02/28/24 10:18 Lidocaine HCl 1 ml IM 02/28/24 09:56 1 kit ONCE ONE Administration Medical Decision Making Medical Decision Making MDM Narrative: 48-year-old male presents to ED for treatment for positive gonorrhea test. Patient states no new symptoms. Patient explained safe sex practices in a informed to tell his partners. Differential Diagnosis Differential Diagnoses: The differential diagnosis associated with the presentation includes (STI) Admission/Observation Consideration of admission/observation: Escalation of care including admission/observation considered Lab Data MDM Lab Attestation statement: I reviewed the patient's lab results. Discharge Plan Discharge Clinical Impression: Gonorrhea Patient Disposition: Home, Self-Care Instructions: Gonorrhea (ED) Additional Instructions: Return to the ED immediately for any testicular pain, testicular swelling, dysuria, hematuria, abdominal pain, flank pain, fever, chills, or any other concerning symptoms. Recommend follow with primary care provider Prescriptions: No Action amlodipine 5 mg tablet 5 mg PO DAILY Qty: 30 1RF meclizine 25 mg tablet 25 mg PO BID PRN (Reason: dizziness) Qty: 20 0RF doxycycline monohydrate 100 mg capsule 100 mg PO BID Qty: 14 0RF cephalexin 500 mg tablet 500 mg PO Q6H 7 Days Qty: 28 0RF cefuroxime axetil 500 mg tablet 500 mg PO BID Qty: 14 0RF Interventions: ED Discharge Assessment Last Done: 02/28/24 10:36 Discharge Date/Time: 02/28/24 10:39 Print Language: Namibian
[2024-02-28] MEDS: cefTRIAXone sodium 500 MG, Lidocaine HCl 1 % MPF 1 ML IM (10:18)
[2024-02-28 10:36] VITALS: BP 152/104; PULSE 82; RESP 18; TEMP 36.8; O2SAT 94
== END 2024-02-28 10:39 | disposition home or self-care (01) ==
PROVIDERS: Emergency Provider Emergency Medicine
DX: A54.9 Gonococcal infection, unspecified (principal)
CPT/HCPCS: 96372; 99282; 99284; J0696

== ENCOUNTER 2024-09-18 06:53 | Emergency (ER) | payer OTHER, SELFPAY ==
[2024-09-18 06:57] VITALS: BP 171/133; PULSE 87; RESP 16; TEMP 36.6; O2SAT 96; BMI 37.9
--- NOTE | 2024-09-18 08:12 | ED_ITS ---
HPI - URI/Sore Throat General Chief Complaint: Upper Respiratory Symptoms Stated Complaint: gen med Time Seen by Provider: 09/18/24 07:52 Source: patient Mode of arrival: ambulatory Limitations: no limitations History of Present Illness HPI Narrative: This is 49 years old male presented to the emergency department with a chief complaint of left ear pain, sore throat malaise. Symptoms have been going on for weeks MD elicited complaint: other (Left ear pain) Onset (ago): week(s) Consistency: constant Severity: moderate Able to tolerate fluids by mouth: Yes Exacerbating factors: nothing Relieving factors: nothing Related Data Previous Rx's ?Medication ?Instructions ?Recorded amlodipine 5 mg tablet 5 mg PO DAILY #30 tabs 08/20/23 meclizine 25 mg tablet 25 mg PO BID PRN dizziness #20 tabs 08/20/23 cephalexin 500 mg tablet 500 mg PO Q6H 7 days #28 tabs 12/26/23 doxycycline monohydrate 100 mg 100 mg PO BID #14 caps 12/26/23 capsule cefuroxime axetil 500 mg tablet 500 mg PO BID #14 tabs 02/23/24 amoxicillin 875 mg-potassium 1 tab PO BID #20 tabs 09/18/24 clavulanate 125 mg tablet Allergies Allergy/AdvReac Type Severity Reaction Status Date / Time No Known Allergies Allergy Verified 09/18/24 06:58 [No Known Allergies*] Review of Systems Review of Systems: Yes all other systems are reviewed and are negative ENT: Reports other (Left ear pain and drainage) Musculoskeletal: Musculoskeletal: Reports no additional musculoskeletal complaints PMFSH Past Medical History Attestation statement: The following information was validated with the patient. Medical History (Updated 09/18/24 @ 08:34 by Morro Heart MD) Hypertension Family History Family History (Updated 08/24/23 @ 17:21 by Charles Amado MD) Father CVA (cerebral vascular accident) Social History Social History Household Members: Family Household Members Other:: 2 Housing: House Do you presently have visiting nurse or other home services: No Alcohol intake: current Alcohol intake frequency: holidays/special occasions only Alcohol type: beer Patient Tobacco Use Status: Never used Tobacco Substance Use Type: Hallucinogens Advance Directives: No Advance Directives Information Provided: No service: No Physical Exam Vital Signs: Vital Signs: Last Vital Signs Temp 98 F 09/18/24 06:57 Pulse 87 09/18/24 08:35 Resp 16 09/18/24 08:35 BP 187/128 H 09/18/24 08:35 Pulse Ox 97 09/18/24 08:35 O2 Del Method Room Air 09/18/24 08:35 BMI result Body Mass Index 37.9 Not acute distress Const: General: cooperative Nutritional Appearance: well nourished Orientation/consciousness: patient oriented x3 Limitations: no limitations HEENT: Other: Left ear redness of the TM he has a small perf in the TM Head: Yes normal to inspection Ears: other (As above redness of the TM with a small perforation) Mouth: Normal oral and palatal mucosa present Neck: Neck: Yes normal visual inspection and Yes full ROM Chest: Chest palpation & inspection: normal inspection of the chest Resp: Effort & Inspection: normal respiratory effort Cardio: Rate: regular rate Rhythm: regular rhythm GI: Inspection: Yes normal to inspection Palpation (GI): Soft to palpation, not firm, nontender and no guarding Auscultation: normal bowel sounds Skin: General skin exam: no rashes or lesions noted and elasticity normal Lesions: no lesions Rashes: no rashes Neuro: General: patient oriented x3 Course Reevaluation(s) Reevaluation #1: BP noted but patient did not take his blood pressure medication today in does not want to stay here to wait at his blood pressure comes down of the amlodipine and I gave him he is requesting to be discharged Time: 08:39 Medications Administered Discontinued Medications Generic Name Dose Route Start Last Admin Trade Name Mercedes PRN Reason Stop Dose Admin Amlodipine Besylate 10 mg 09/18/24 08:33 09/18/24 08:38 Amlodipine Besylate 10 Mg Tablet PO 09/18/24 08:34 10 mg ONCE ONE Administration Protocol Medical Decision Making Medical Decision Making MDM Narrative: Patient presented with URI symptoms on examination he has a left TM with a small perf will need the antibiotic Differential Diagnosis Differential Diagnoses: The differential diagnosis associated with the presentation includes URI/otitis media with perforation Discharge Plan Discharge Clinical Impression: Otitis media Qualifiers: Otitis media type: unspecified Chronicity: acute Qualified Code(s): H66.90 - Otitis media, unspecified, unspecified ear Hypertension Qualifiers: Hypertension type: primary hypertension Qualified Code(s): I10 - Essential (primary) hypertension Patient Disposition: Home, Self-Care Instructions: Ear Infection (ED) Additional Instructions: Take Augmentin as directed, follow-up with the ENT return if worse, your blood pressure was elevated the make sure you take your blood pressure medication every day and follow-up with your primary care physician Prescriptions: New amoxicillin-pot clavulanate 875-125 mg tablet 1 tab PO BID Qty: 20 0RF No Action amlodipine 5 mg tablet 5 mg PO DAILY Qty: 30 1RF meclizine 25 mg tablet 25 mg PO BID PRN (Reason: dizziness) Qty: 20 0RF doxycycline monohydrate 100 mg capsule 100 mg PO BID Qty: 14 0RF cephalexin 500 mg tablet 500 mg PO Q6H 7 Days Qty: 28 0RF cefuroxime axetil 500 mg tablet 500 mg PO BID Qty: 14 0RF Referrals: Vincent Storm [Physician] - 3 days Print Language: Emirati
[2024-09-18 08:35] VITALS: BP 187/128; PULSE 87; RESP 16; O2SAT 97
[2024-09-18] MEDS: amLODIPine Besylate 10 MG TABLET PO (08:38)
[2024-09-18 08:40] VITALS: BP 187/128; PULSE 87; RESP 16; TEMP 36.6; O2SAT 97
== END 2024-09-18 08:40 | disposition home or self-care (01) ==
PROVIDERS: Emergency Provider Emergency Medicine
DX: H66.92 Otitis media, unspecified, left ear (principal); H92.02 Otalgia, left ear; J02.9 Acute pharyngitis, unspecified; R53.81 Other malaise; I10 Essential (primary) hypertension
CPT/HCPCS: 99282; 99283